=== PATIENT | male | born 1955 | race Asian ===

== ENCOUNTER → 2017-10-06 | Outpatient (CLI) | payer BC, OTHER ==
[~2017-10-06] MED LIST: ALLO100T PO; ATOR10TA69 PO; FENO45CA2 PO; GABA-531 PO; ISON300T4 PO; ISOS20TA9 PO; LABE200T PO; NIFE90TA45 PO; PYRI50TA15 PO
== END | disposition home or self-care (01) ==
LOC: OIH 16:29
PROVIDERS: ATTEND Internal Medicine
DX: R05 Cough (principal)
CPT/HCPCS: 71046

== ENCOUNTER → 2017-11-30 | Outpatient (CLI) | payer BC, OTHER ==
[~2017-11-30] MED LIST changes: -LABE200T PO; +LABE200T5 PO
== END | disposition home or self-care (01) ==
LOC: OIH 10:42
PROVIDERS: ATTEND Internal Medicine Nephrology
DX: Z01.818 Encounter for other preprocedural examination (principal); M47.895 Other spondylosis, thoracolumbar region
CPT/HCPCS: 71046

== ENCOUNTER → 2018-07-27 | Outpatient (CLI) | payer BC, OTHER | END | disposition home or self-care (01) | LOC: RAH 14:13 | PROVIDERS: ATTEND Orthopaedic Surgery | DX: S83.232A Complex tear of medial meniscus, current injury, left knee, initial encounter (principal); S83.272A Complex tear of lateral meniscus, current injury, left knee, initial encounter; M25.462 Effusion, left knee; X58.XXXA Exposure to other specified factors, initial encounter; Y93.89 Activity, other specified; Y92.89 Other specified places as the place of occurrence of the external cause; Y99.8 Other external cause status | CPT/HCPCS: 73721 ==

== ENCOUNTER 2018-09-17 13:19 | Emergency (ER) | payer BC, OTHER ==
[~2018-09-17 13:19] MED LIST changes: +ISON300T17 PO; -ISON300T4 PO
[2018-09-17] MEDS ORDERED: ACETAMINOPHEN-CODEINE 300/30MG TAB ONE (13:40)
== END 2018-09-17 14:38 | disposition home or self-care (01) ==
LOC: EDH 13:19
DX: S52.531A Colles' fracture of right radius, initial encounter for closed fracture (principal); N18.6 End stage renal disease; Z87.891 Personal history of nicotine dependence; Z98.890 Other specified postprocedural states; W01.0XXA Fall on same level from slipping, tripping and stumbling without subsequent striking against object, initial encounter; Y93.89 Activity, other specified; Y92.009 Unspecified place in unspecified non-institutional (private) residence as the place of occurrence of the external cause; Y99.8 Other external cause status
CPT/HCPCS: 29125; 73110

== ENCOUNTER → 2018-09-21 | Outpatient (CLI) | payer BC | END | disposition home or self-care (01) | LOC: RAH 16:53 | PROVIDERS: ATTEND Internal Medicine | DX: Z01.818 Encounter for other preprocedural examination (principal); I10 Essential (primary) hypertension | CPT/HCPCS: 71046 ==

== ENCOUNTER 2018-09-27 08:58 | Day surgery (SDC) | payer BC ==
[2018-09-26 16:19] LABS: EOSINOPHILS % (AUTO) 1.9 % (0.0-8.0); HEMATOCRIT 40.9 % (42-54); LYMPHOCYTES % (AUTO) 29.5 % (21.0-51.0); MEAN CORPUSCULAR HEMOGLOBIN 32.6 pg (27.0-33.0); MEAN CORPUSCULAR HGB CONC 33.3 g/dL (32.0-36.0); MEAN CORPUSCULAR VOLUME 97.7 fL (79-99); MONOCYTES % (AUTO) 10.3 % (3.0-13.0); NEUTROPHILS % (AUTO) 57.3 % (40.0-77.0); PLATELET COUNT (AUTO) 264 K/uL (130-400); RED BLOOD CELL COUNT(AUTO) 4.18 MIL/uL (4.50-6.20); RED CELL DISTRIBUTION WIDTH 15.4 % (11.0-15.5); WHITE BLOOD COUNT (AUTO) 7.3 K/uL (4.8-10.8)
[2018-09-26 16:21] LABS: APPEARANCE,URINE Clear (CLEAR); BILIRUBIN,URINE Negative (NEGATIVE); COLOR,URINE Yellow (YELLOW); GLUCOSE, URINE (UA) Negative (NEGATIVE); KETONES,URINE Negative (NEGATIVE); LEUKOCYTE ESTERASE ,URINE Negative (NEGATIVE); NITRATE,URINE Negative (NEGATIVE); OCCULT BLOOD,URINE Negative (NEGATIVE); PH,URINE 5.5 (5.0-8.0); PROTEIN,URINE POS 1+ (NEGATIVE); UROBILINOGEN,URINE 0.2 mg/dL (0.2-1.0)
[2018-09-26 16:22] VITALS: BP 151/72
[2018-09-26 16:32] LABS: CREATININE 2.2 mg/dL (0.5-1.5)
[2018-09-26 16:35] LABS: PARTIAL THROMBOPLASTIN TIME 28.5 SEC (26.3-35.5); PROTHROMBIN TIME 10.5 SEC (9.6-11.6)
[2018-09-26 16:40] LABS: BACTERIA,URINE None Seen /HPF (None Seen); RBC,URINE 0-1 /HPF (0-1); SQUAMOUS EPITHELIAL CELL,UR Rare /HPF (0-2); WBC,URINE 0-1 /HPF (0-1)
--- NOTE | 2018-09-26 17:13 | NUR ---
ABNORMAL LABS REPORTED ALL ABNORMAL LABS TO DR. WHATLEY. NO NEW ORDERS
[~2018-09-27] VITALS: Ht 170.2 cm; Wt 105.6 kg
[2018-09-27] VITALS (21 sets, daily range): BP systolic 118–157; BP diastolic 60–85
[~2018-09-27 08:58] MED LIST changes: +CEFAZOLIN 3GM /D5W 100ML 100 ML IV SCH; -FENO45CA2 PO; +HYDR-4060 PO; -ISON300T17 PO; -LABE200T5 PO; +LABE300T2 PO; +MYCO360T PO; +PNV1TABL71 PO; +PRED5TAB PO; -PYRI50TA15 PO
[2018-09-27] MEDS ORDERED: LIDOCAINE PF 2% 5ML ABBOJECT ONE (10:08)
[2018-09-27] MEDS ORDERED: PROPOFOL 10 MG/ML 20ML VIAL IV ONE (10:08)
[2018-09-27] MEDS ORDERED: FENTANYL CITRATE PF 50 MCG/1 ML 2ML VIAL ONE (10:09)
[2018-09-27] MEDS ORDERED: SODIUM CHLORIDE 0.9% 1000ML 1,000 ML IV ONE (10:09)
[2018-09-27] MEDS: CEFAZOLIN SODIUM 1 GM VIAL ONE ×2 (10:22→10:42)
[2018-09-27] MEDS ORDERED: GLYCOPYRROLATE 1 MG/5 ML SYRINGE ONE (11:00)
[2018-09-27] MEDS ORDERED: MEPERIDINE-PF 25 MG/ML SYG ONE ×2 (11:51→11:58)
[2018-09-27] MEDS ORDERED: HYDR-4457 PO (12:01)
[2018-09-27] MEDS ORDERED: CEPH500B PO (12:01)
== END 2018-09-27 13:50 | disposition home or self-care (01) ==
LOC: DAH 08:58 → UNDOADMIN 08:58 → DAHIP 08:58 → DAH 13:50 → UNDODISIN 13:50 → DAH 18:11
PROVIDERS: ATTEND Orthopaedic Surgery
DX: S52.591A Other fractures of lower end of right radius, initial encounter for closed fracture (principal); W19.XXXA Unspecified fall, initial encounter; Y93.89 Activity, other specified; Y92.89 Other specified places as the place of occurrence of the external cause; Y99.8 Other external cause status; J45.909 Unspecified asthma, uncomplicated; K21.9 Gastro-esophageal reflux disease without esophagitis; I25.10 Atherosclerotic heart disease of native coronary artery without angina pectoris; M19.90 Unspecified osteoarthritis, unspecified site; I12.9 Hypertensive chronic kidney disease with stage 1 through stage 4 chronic kidney disease, or unspecified chronic kidney disease; N18.9 Chronic kidney disease, unspecified; E78.5 Hyperlipidemia, unspecified; Z79.899 Other long term (current) drug therapy; Z88.8 Allergy status to other drugs, medicaments and biological substances; Z87.891 Personal history of nicotine dependence; Z79.1 Long term (current) use of non-steroidal anti-inflammatories (NSAID); Z83.3 Family history of diabetes mellitus; Z82.49 Family history of ischemic heart disease and other diseases of the circulatory system
CPT/HCPCS: 25606; 36415; 76000; 80048; 81001; 85025; 85610; 85730; A4218; A4930; A6223; C1713; J0690; J2001; J2175 ×2; J2704; J3010; J3490; J7030; Q4051

== ENCOUNTER 2019-04-13 06:55 | Day surgery (SDC) | payer BC ==
[2019-04-12 16:40] LABS: BASOPHILS % (AUTO) 0.7 % (0.0-5.0); EOSINOPHILS % (AUTO) 2.1 % (0.0-8.0); HEMATOCRIT 42.6 % (42-54); LYMPHOCYTES % (AUTO) 23.9 % (21.0-51.0); MEAN CORPUSCULAR HEMOGLOBIN 34.1 pg (27.0-33.0); MEAN CORPUSCULAR VOLUME 100.3 fL (79-99); MONOCYTES % (AUTO) 11.3 % (3.0-13.0); PLATELET COUNT (AUTO) 212 K/uL (130-400); RED BLOOD CELL COUNT(AUTO) 4.25 MIL/uL (4.50-6.20); RED CELL DISTRIBUTION WIDTH 14.6 % (11.0-15.5); WHITE BLOOD COUNT (AUTO) 8.6 K/uL (4.8-10.8)
[2019-04-12 16:49] LABS: CREATININE 2.1 mg/dL (0.5-1.5); POTASSIUM 4.4 mmol/L (3.5-5.1)
[2019-04-12 17:52] VITALS: BP 162/80
[2019-04-13] VITALS (13 sets, daily range): BP systolic 112–150; BP diastolic 61–84
[~2019-04-13] VITALS: Ht 170.2 cm; Wt 104.8 kg
[~2019-04-13 06:55] MED LIST changes: +BELA250V IV; -CEFAZOLIN 3GM /D5W 100ML 100 ML IV SCH; -HYDR-4060 PO; +HYDR-4457 PO; +LEFL20TA18 PO; -MYCO360T PO; -PNV1TABL71 PO
[2019-04-13] MEDS ORDERED: LIDOCAINE PF 2% 5ML ABBOJECT ONE (07:48)
[2019-04-13] MEDS ORDERED: SUCCINYLCHOLINE 200MG/10ML SYR ONE (07:48)
[2019-04-13] MEDS ORDERED: FENTANYL CITRATE PF 50 MCG/1 ML 2ML VIAL ONE (07:49)
[2019-04-13] MEDS ORDERED: PROPOFOL 10 MG/ML 20ML VIAL IV ONE (07:49)
[2019-04-13] MEDS ORDERED: NEOSTIGMINE 5MG/5ML SYR IV ONE (07:49)
[2019-04-13] MEDS ORDERED: ROCURONIUM 10MG/1ML SYR 10 MG/ML ML ONE (07:49)
[2019-04-13] MEDS ORDERED: GLYCOPYRROLATE 1 MG/5 ML SYRINGE ONE (07:49)
[2019-04-13] MEDS ORDERED: LACTATED RINGERS 1000ML 1,000 ML IV ONE (08:07)
[2019-04-13] MEDS: CEFAZOLIN SODIUM 1 GM VIAL IVP ONE ×2 (08:37→09:14)
--- NOTE | 2019-04-13 08:37 | NUR ---
ANTIBIOTIC NOT GIVEN , TAKEN WITH PATIENT TO OR
[2019-04-13] MEDS ORDERED: METHYLPREDNISOLONE SOD SUCC 125MG/2ML VIAL ONE ×2 (08:47→08:48)
[2019-04-13] MEDS ORDERED: HYDROCORTISONE SOD SUCCINATE 100 MG/2 ML VIAL ONE (08:49)
[2019-04-13] MEDS ORDERED: KETOROLAC TROMETHAMINE 30MG/ML ONE (09:39)
[2019-04-13] MEDS ORDERED: ONDANSETRON HCL 4 MG/2 ML VIAL ONE (09:39)
[2019-04-13] MEDS ORDERED: CEPH500B PO (09:52)
[2019-04-13] MEDS ORDERED: MEPERIDINE-PF 25 MG/ML SYG ONE (10:05)
== END 2019-04-13 11:45 | disposition home or self-care (01) ==
LOC: DAH 06:55
PROVIDERS: ATTEND Orthopaedic Surgery
DX: M23.204 Derangement of unspecified medial meniscus due to old tear or injury, left knee (principal); M94.262 Chondromalacia, left knee; M17.12 Unilateral primary osteoarthritis, left knee; I12.9 Hypertensive chronic kidney disease with stage 1 through stage 4 chronic kidney disease, or unspecified chronic kidney disease; N18.9 Chronic kidney disease, unspecified; E78.5 Hyperlipidemia, unspecified; I25.10 Atherosclerotic heart disease of native coronary artery without angina pectoris; M19.90 Unspecified osteoarthritis, unspecified site; F17.200 Nicotine dependence, unspecified, uncomplicated; J45.909 Unspecified asthma, uncomplicated; Z86.010 Personal history of colon polyps; Z98.1 Arthrodesis status; Z96.651 Presence of right artificial knee joint; Z94.0 Kidney transplant status; G89.29 Other chronic pain; Z98.890 Other specified postprocedural states
CPT/HCPCS: 29881; 36415; 80048; 85025; A4606 ×2; A4649 ×2; A4930; A6223; J0330; J0690; J1720; J1885; J2001; J2175; J2405; J2704; J2710; J2930; J3010; J3490; J7120

== ENCOUNTER 2019-08-05 13:38 | Emergency (ER) | payer BC ==
[~2019-08-05 13:38] MED LIST changes: +CEPH500B PO
[2019-08-05 14:19] LABS: BASOPHILS % (AUTO) 0.2 % (0.0-5.0); HEMATOCRIT 39.7 % (42-54); LYMPHOCYTES % (AUTO) 8.8 % (21.0-51.0); MEAN CORPUSCULAR HEMOGLOBIN 33.6 pg (27.0-33.0); MEAN CORPUSCULAR HGB CONC 33.7 g/dL (32.0-36.0); MEAN CORPUSCULAR VOLUME 99.9 fL (79-99); PLATELET COUNT (AUTO) 235 K/uL (130-400); RED BLOOD CELL COUNT(AUTO) 3.97 MIL/uL (4.50-6.20); RED CELL DISTRIBUTION WIDTH 14.8 % (11.0-15.5); WHITE BLOOD COUNT (AUTO) 10.8 K/uL (4.8-10.8)
[2019-08-05 14:35] LABS: CREATININE 2.1 mg/dL (0.5-1.5); INR 1.01 (0.85-1.15); PARTIAL THROMBOPLASTIN TIME 23.8 SEC (26.3-35.5); PROTHROMBIN TIME 10.6 SEC (9.6-11.6)
[2019-08-05 14:44] LABS: ALBUMIN 3.6 g/dL (3.5-5.0); BILIRUBIN,TOTAL 0.4 mg/dL (0.2-1.0); TOTAL PROTEIN, SERUM 6.5 g/dL (6.0-8.3)
[2019-08-05] MEDS ORDERED: HYDRALAZINE HCL 20 MG/ML VIAL ONE (15:12)
== END 2019-08-05 17:06 | disposition home or self-care (01) ==
LOC: EDH 13:38
DX: I12.9 Hypertensive chronic kidney disease with stage 1 through stage 4 chronic kidney disease, or unspecified chronic kidney disease (principal); N18.6 End stage renal disease; Z90.49 Acquired absence of other specified parts of digestive tract; Z94.0 Kidney transplant status; Z72.0 Tobacco use
CPT/HCPCS: 36415; 71045; 80053; 82550; 84484; 85025; 85610; 85730; 93005; 96374; 99285; J0360

== ENCOUNTER → 2019-12-17 | Outpatient (CLI) | payer BC | END | disposition home or self-care (01) | LOC: OIH 15:39 | PROVIDERS: ATTEND Internal Medicine | DX: I10 Essential (primary) hypertension (principal) | CPT/HCPCS: 71046 ==

== ENCOUNTER → 2020-01-08 | Outpatient (CLI) | payer BC | END | disposition home or self-care (01) | LOC: RAH 08:15 | PROVIDERS: ATTEND Internal Medicine Nephrology | DX: Z94.0 Kidney transplant status (principal); T86.10 Unspecified complication of kidney transplant | CPT/HCPCS: 76770 ==

== ENCOUNTER 2020-01-14 10:00 | Inpatient (IN) | payer BC, MEDICARE ==
[~2020-01-14] VITALS: Ht 170.2 cm; Wt 103.9 kg
[~2020-01-14 10:00] MED LIST changes: -CEPH500B PO; -ISOS20TA9 PO; -NIFE90TA45 PO; -PRED5TAB PO
[2020-02-01 12:59] LABS: BASOPHILS % (AUTO) 0.6 % (0.0-5.0); EOSINOPHILS % (AUTO) 2.7 % (0.0-8.0); HEMATOCRIT 34.8 % (42-54); LYMPHOCYTES % (AUTO) 22.9 % (21.0-51.0); MEAN CORPUSCULAR HEMOGLOBIN 31.6 pg (27.0-33.0); MEAN CORPUSCULAR VOLUME 95.6 fL (79-99); NEUTROPHILS % (AUTO) 65.4 % (40.0-77.0); PLATELET COUNT (AUTO) 218 K/uL (130-400); RED BLOOD CELL COUNT(AUTO) 3.64 MIL/uL (4.50-6.20); RED CELL DISTRIBUTION WIDTH 14.8 % (11.0-15.5); WHITE BLOOD COUNT (AUTO) 9.8 K/uL (4.8-10.8)
[2020-02-01 13:10] LABS: CREATININE 2.4 mg/dL (0.5-1.5); POTASSIUM 4.4 mmol/L (3.5-5.1)
[2020-02-01 13:13] LABS: APPEARANCE,URINE Clear (CLEAR); BILIRUBIN,URINE Negative (NEGATIVE); COLOR,URINE Yellow (YELLOW); GLUCOSE, URINE (UA) Negative (NEGATIVE); INR 0.94 (0.85-1.15); KETONES,URINE Negative (NEGATIVE); LEUKOCYTE ESTERASE ,URINE Negative (NEGATIVE); NITRATE,URINE Negative (NEGATIVE); OCCULT BLOOD,URINE Negative (NEGATIVE); PARTIAL THROMBOPLASTIN TIME 26.6 SEC (26.3-35.5); PH,URINE 5.5 (5.0-8.0); PROTEIN,URINE POS 2+ mg/dL (NEGATIVE); PROTHROMBIN TIME 10.2 SEC (9.6-11.6); UROBILINOGEN,URINE 0.2 mg/dL (0.2-1.0)
[2020-02-01 13:36] LABS: BACTERIA,URINE Rare /HPF (None Seen); RBC,URINE None Seen /HPF (0-1)
[2020-02-01 13:38] LABS: SQUAMOUS EPITHELIAL CELL,UR None Seen /HPF (0-2); WBC,URINE 0-1 /HPF (0-1)
[2020-02-05 10:48] VITALS: BP 193/94
[2020-02-05] MEDS ORDERED: VANCOMYCIN 1GM+NS 250ML 250 ML IV SCH (11:30)
[2020-02-05] MEDS ORDERED: DOXA4TAB3 PO (15:40)
[2020-02-05] MEDS ORDERED: FAMO20TA8 PO (15:41)
[2020-02-05] MEDS ORDERED: HYDR-4154 PO (15:43)
[2020-02-05] MEDS ORDERED: ISOS60TA4 PO (15:44)
[2020-02-05] MEDS ORDERED: [UNRECOGNIZED DRUG - OTHER] PO (15:45)
[2020-02-06] VITALS (22 sets, daily range): BP systolic 115–158; BP diastolic 64–105
[2020-02-06] MEDS ORDERED: CEFAZOLIN SODIUM 1 GM VIAL IVP SCH (06:00)
[2020-02-06] MEDS ORDERED: SODIUM CHLORIDE 0.9% 1000ML 1,000 ML IV ONE (06:30)
[2020-02-06] MEDS ORDERED: VANCOMYCIN 2 GM in SODIUM CHLORIDE 0.9% 500ML 500 ML IV SCH (06:45)
--- NOTE | 2020-02-06 06:50 | NUR ---
POTENTIAL FOR INFECTION: CLIPPED LEFT KNEE / LEFT LEG PER GRETA DOMINGO, FOLLOWED BY WIPING WITH JESSICA: 2% CHLORHEXIDINE GLUCONATE CLOTH PATIENTS PRE-OP SKIN PREP.
[2020-02-06] MEDS ORDERED: LIDOCAINE PF 2% 5ML ABBOJECT ONE (07:45)
[2020-02-06] MEDS ORDERED: KETAMINE 50MG/ML SYRINGE 50 MG/ML DISP.SYRIN IV ONE (07:45)
[2020-02-06] MEDS ORDERED: PROPOFOL 10 MG/ML 20ML VIAL IV ONE (07:45)
[2020-02-06] MEDS ORDERED: ROCURONIUM 10MG/1ML SYR 10 MG/ML ML ONE ×2 (07:45→08:49)
[2020-02-06] MEDS ORDERED: SUCCINYLCHOLINE CHLORIDE 20 MG/ML 10 ML VIAL ONE (07:45)
[2020-02-06] MEDS ORDERED: CEFAZOLIN SODIUM 1 GM VIAL ONE ×2 (07:46→07:49)
[2020-02-06] MEDS ORDERED: VANCOMYCIN HCL 1 GM VIAL ONE (07:47)
[2020-02-06] MEDS ORDERED: TRANEXAMIC ACID 1000MG/10ML ONE ×2 (07:59→11:10)
[2020-02-06] MEDS ORDERED: VANCOMYCIN HCL 1 GM VIAL IRRIG ONE (09:08)
[2020-02-06] MEDS ORDERED: NEOSTIGMINE 5MG/5ML SYR IV ONE (09:53)
[2020-02-06] MEDS ORDERED: GLYCOPYRROLATE 1 MG/5 ML SYRINGE ONE (09:53)
[2020-02-06] MEDS ORDERED: ONDANSETRON HCL 4 MG/2 ML VIAL ONE (10:24)
[2020-02-06] MEDS: SODIUM CHLORIDE 0.9% 1000ML 1,000 ML IV SCH ×2 (10:24→23:24)
[2020-02-06] MEDS ORDERED: ONDANSETRON HCL 4 MG/2 ML VIAL IVP PRN (10:30)
[2020-02-06] MEDS ORDERED: FERROUS FUMARATE 324 MG TABLET PO PRN (10:30)
[2020-02-06] MEDS ORDERED: DiphenhydrAMINE HCL 50 MG/ML VIAL IVP PRN (10:30)
[2020-02-06] MEDS ORDERED: POTASSIUM CHLORIDE 20MEQ/100ML 100 ML IV PRN (10:30)
[2020-02-06] MEDS ORDERED: POTASSIUM CHLORIDE 20 MEQ ERTAB PO PRN (10:30)
[2020-02-06] MEDS ORDERED: ACETAMINOPHEN EXTRA STRENGTH 500 MG TABLET PO SCH (10:30)
[2020-02-06] MEDS ORDERED: TRAMADOL HCL 50 MG TABLET PO PRN (10:30)
[2020-02-06] MEDS ORDERED: POTASSIUM CHLORIDE 10% ELIXIR 20 MEQ/15 ML UDCUP PO PRN (10:30)
[2020-02-06] MEDS ORDERED: KETOROLAC TROMETHAMINE 15MG/ML IV PRN (10:30)
[2020-02-06] MEDS ORDERED: OXYCODONE HCL 5 MG TAB PO PRN (10:30)
[2020-02-06] MEDS ORDERED: LIDOCAINE HCL-MPF 1% 2ML VIAL IV PRN (10:30)
[2020-02-06] MEDS: OXYCODONE HCL 5 MG TAB PO PRN ×3 (12:51→23:24)
--- NOTE | 2020-02-06 14:44 | NUR ---
DC PLAN VISITED WITH PATIENT. PATIENT LIVES WITH SPOUSE. INDEPENDENT ABLE TO PERFORM ADL'S. PATIENT HAS NO SERVICES. FEELS SAFE TO RETURN HOME.. DME: SAYS HE HAS FROM LAST ADMISSION WALKER STANDARD NO WHEELS AND 3 IN 1. HOME HEALTH: DR. WHATLEY RECOMMENDS [facility] PER PATIENT GAVE VERBAL CONSENT. PATIENT ON ISOLATION FOR NARES MRSA. INFO SENT TO [facility]. PATIENT ACCEPTED. Addendum: 02/06/20 at 1513 by SRAVANTHI ELDER RN CM Amended: Links added.
[2020-02-06] MEDS ORDERED: SODIUM CHLORIDE 0.9% 100 ML IV ONE (15:51)
[2020-02-06] MEDS: VANCOMYCIN 1GM+NS 250ML 250 ML IV SCH (16:01)
[2020-02-06] MEDS: CEFAZOLIN SODIUM 1 GM VIAL IVP SCH ×2 (16:01→23:23)
[2020-02-06] MEDS: LABETALOL HCL 200 MG TABLET PO SCH (20:04)
[2020-02-06] MEDS: CELECOXIB 200 MG CAP PO SCH (20:04)
[2020-02-06] MEDS: HYDRALAZINE HCL 25 MG TABLET PO SCH (20:04)
[2020-02-06] MEDS: ASPIRIN 81MG TAB.CHEW PO SCH (20:05)
[2020-02-06] MEDS: ISOSORBIDE MONO 60 MG TAB.SR PO SCH (20:05)
[2020-02-06] MEDS: ATORVASTATIN CALCIUM 10 MG TABLET PO SCH (20:05)
[2020-02-06] MEDS: DOXAZOSIN MESYLATE 2 MG TABLET PO SCH (20:05)
[2020-02-06] MEDS: GABAPENTIN 300 MG CAPSULE PO SCH (20:05)
[2020-02-06] MEDS: ACETAMINOPHEN EXTRA STRENGTH 500 MG TABLET PO SCH (20:06)
[2020-02-06] MEDS ORDERED: FAMOTIDINE 20MG TAB 20 MG TAB PO SCH (21:00)
[2020-02-06] MEDS ORDERED: HYDROMORPHONE 1 MG/1 ML AMP ONE (21:52)
[2020-02-07] MEDS: HYDROMORPHONE 1 MG/1 ML AMP IVP PRN ×8 (00:07→21:49)
[2020-02-07 00:12] VITALS: BP 183/78
[2020-02-07] MEDS: VANCOMYCIN 1GM+NS 250ML 250 ML IV SCH (03:51)
[2020-02-07 04:20] VITALS: BP 150/77
[2020-02-07 04:59] LABS: HEMATOCRIT 29.1 % (42-54); MEAN CORPUSCULAR HEMOGLOBIN 31.7 pg (27.0-33.0); MEAN CORPUSCULAR HGB CONC 32.6 g/dL (32.0-36.0); RED CELL DISTRIBUTION WIDTH 15.1 % (11.0-15.5); WHITE BLOOD COUNT (AUTO) 10.8 K/uL (4.8-10.8)
[2020-02-07] MEDS: ACETAMINOPHEN EXTRA STRENGTH 500 MG TABLET PO SCH ×3 (05:09→21:00)
[2020-02-07 05:19] LABS: CREATININE 2.7 mg/dL (0.5-1.5)
[2020-02-07] MEDS: SODIUM CHLORIDE 0.9% 1000ML 1,000 ML IV SCH (06:46)
[2020-02-07 08:00] VITALS: BP 164/82
[2020-02-07] MEDS: FAMOTIDINE 20MG TAB 20 MG TAB PO SCH (08:21)
[2020-02-07] MEDS: CALCIUM CARBONATE 500 MG TABLET PO PRN ×2 (08:21→19:42)
[2020-02-07] MEDS: CELECOXIB 200 MG CAP PO SCH ×2 (08:21→19:41)
[2020-02-07] MEDS: ASPIRIN 81MG TAB.CHEW PO SCH ×2 (08:22→19:41)
[2020-02-07] MEDS: ALLOPURINOL 100 MG TABLET PO SCH (08:22)
[2020-02-07] MEDS: HYDRALAZINE HCL 25 MG TABLET PO SCH ×2 (08:22→19:42)
[2020-02-07] MEDS: TAMSULOSIN HCL 0.4 MG CAP.ER.24H PO SCH (08:23)
[2020-02-07] MEDS: POLYETHYLENE GLYCOL 3350 17 GM POWD.PACK PO SCH (08:23)
[2020-02-07] MEDS: LABETALOL HCL 200 MG TABLET PO SCH ×2 (08:23→19:42)
[2020-02-07] MEDS: [UNRECOGNIZED DRUG - OTHER] PO SCH (08:30)
[2020-02-07] MEDS: **HM** LEFLUNOMIDE 20MG PO SCH (08:30)
[2020-02-07] MEDS ORDERED: HYDROMORPHONE PCA 10 MG/50 ML 50 ML IV PRN (08:45)
[2020-02-07 11:39] VITALS: BP 127/70
[2020-02-07 16:00] VITALS: BP 148/86
[2020-02-07] MEDS: ISOSORBIDE MONO 60 MG TAB.SR PO SCH (19:41)
[2020-02-07] MEDS: DOXAZOSIN MESYLATE 2 MG TABLET PO SCH (19:41)
[2020-02-07] MEDS: ATORVASTATIN CALCIUM 10 MG TABLET PO SCH (19:42)
[2020-02-07] MEDS: GABAPENTIN 300 MG CAPSULE PO SCH (19:42)
[2020-02-07 20:20] VITALS: BP 156/69
[2020-02-07] MEDS: OXYCODONE HCL 5 MG TAB PO PRN (22:27)
[2020-02-08 00:24] VITALS: BP 159/73
[2020-02-08] MEDS: ACETAMINOPHEN EXTRA STRENGTH 500 MG TABLET PO SCH (04:13)
[2020-02-08 04:24] VITALS: BP 135/72
[2020-02-08 08:00] VITALS: BP 131/70
[2020-02-08] MEDS ORDERED: MAGNESIUM CITRATE 296 ML SOLUTION PO SCH (08:30)
[2020-02-08] MEDS: **HM** LEFLUNOMIDE 20MG PO SCH (09:00)
[2020-02-08] MEDS: [UNRECOGNIZED DRUG - OTHER] PO SCH (09:00)
[2020-02-08] MEDS: TAMSULOSIN HCL 0.4 MG CAP.ER.24H PO SCH (09:00)
[2020-02-08] MEDS ORDERED: BISACODYL 5 MG TABLET.DR PO SCH (09:00)
[2020-02-08] MEDS: LABETALOL HCL 200 MG TABLET PO SCH (09:11)
[2020-02-08] MEDS: HYDRALAZINE HCL 25 MG TABLET PO SCH (09:11)
[2020-02-08] MEDS: ASPIRIN 81MG TAB.CHEW PO SCH (09:11)
[2020-02-08] MEDS: ALLOPURINOL 100 MG TABLET PO SCH (09:11)
[2020-02-08] MEDS: POLYETHYLENE GLYCOL 3350 17 GM POWD.PACK PO SCH (09:12)
[2020-02-08] MEDS: CELECOXIB 200 MG CAP PO SCH (09:12)
[2020-02-08] MEDS: FAMOTIDINE 20MG TAB 20 MG TAB PO SCH (09:12)
[2020-02-08 11:13] VITALS: BP 150/90
[2020-02-08] MEDS ORDERED: HYDR-4457 PO (11:33)
[2020-02-08] MEDS ORDERED: ASPI-1005 PO (11:33)
--- NOTE | 2020-02-08 12:00 | NUR ---
REPORT CALLED [facility]. REPORT GIVEN TO GIANNA FERNANDES LVN REGARDING F/U APPOINTMENTS, WBAT, NEW RX (ASA, NORCO), [facility] AND D/C , S/S TO REPORT. NO CONCERNS VOICED.
--- NOTE | 2020-02-08 12:00 | NUR ---
DISCHARGE PATIENT GIVEN DISCHARGE INSTRUCTIONS AND EDUCATION ON FOLLOW UP APPOINTMENTS, NEW RX (ASA, NORCO), S/S TO REPORT, [facility] AND D/C ON 02/13/20, WBAT. PATIENT VERBALIZED UNDERSTANDING OF ALL EDUCATION GIVEN VIA TEACH BACK, REFERENCE MATERIAL PROVIDED., IV DISCONTINUED, CATHETER INTACT. NO DISTRESS NOTED UPON DISCHARGE. [facility] CH[facility]. CLEANED SITE WITH IODINE, SEAL INTACT, NEGATIVE PRESSURE ACTIVE. PATIENT WAITING ON SECOND THERAPY SESSION THIS AFTERNOON TO GO HOME.
[2020-02-09] MEDS ORDERED: BISACODYL 10 MG SUPP.RECT RC PRN (10:30)
== END 2020-02-08 14:25 | disposition home health service (06) | DRG 470 ==
LOC: EDSTATUS 10:00 → DAHIP 02-06 05:06 → 3DH 02-06 12:08
PROVIDERS: ADMIT Orthopaedic Surgery; ATTEND Orthopaedic Surgery
PROC: 0SRD0J9 Replacement of Left Knee Joint with Synthetic Substitute, Cemented, Open Approach (ICD-10-PCS; principal; 2020-02-06 08:04)
PROC: 3E0T3BZ Introduction of Anesthetic Agent into Peripheral Nerves and Plexi, Percutaneous Approach (ICD-10-PCS; 2020-02-06 08:04)
DX: M17.12 Unilateral primary osteoarthritis, left knee (principal); Z94.0 Kidney transplant status; E78.5 Hyperlipidemia, unspecified; I25.10 Atherosclerotic heart disease of native coronary artery without angina pectoris; I34.0 Nonrheumatic mitral (valve) insufficiency; J45.909 Unspecified asthma, uncomplicated; K59.00 Constipation, unspecified; Z96.651 Presence of right artificial knee joint; K21.9 Gastro-esophageal reflux disease without esophagitis; N18.9 Chronic kidney disease, unspecified; I12.9 Hypertensive chronic kidney disease with stage 1 through stage 4 chronic kidney disease, or unspecified chronic kidney disease; G89.29 Other chronic pain; Z87.891 Personal history of nicotine dependence; Z86.010 Personal history of colon polyps; Z88.7 Allergy status to serum and vaccine; Z83.3 Family history of diabetes mellitus; Z82.49 Family history of ischemic heart disease and other diseases of the circulatory system
CPT/HCPCS: 36415; 80048; 81001; 85025; 85027; 85610; 85730; 87641; 96365; 97039; G0378; J0330; J0690; J1170; J1885; J2001; J2405; J2704; J2710; J3370; J3490; J7030; J7040; J7120; U0003

== ENCOUNTER → 2020-05-15 | Outpatient (CLI) | payer BC, MEDICARE ==
[~2020-05-15] MED LIST changes: +ASPI-1005 PO; +DOXA4TAB3 PO; +FAMO20TA8 PO; +HYDR-4154 PO; +ISOS60TA4 PO; +[UNRECOGNIZED DRUG - OTHER] PO
== END | disposition home or self-care (01) ==
LOC: RAH 12:32
PROVIDERS: ATTEND Anesthesiology Pain Medicine
DX: M51.17 Intervertebral disc disorders with radiculopathy, lumbosacral region (principal); M48.07 Spinal stenosis, lumbosacral region; M47.27 Other spondylosis with radiculopathy, lumbosacral region; M96.1 Postlaminectomy syndrome, not elsewhere classified
CPT/HCPCS: 72148

== ENCOUNTER 2021-02-13 09:53 | Day surgery (SDC) | payer BC, MEDICARE ==
[2021-02-10 14:10] LABS: BASOPHILS % (AUTO) 0.7 % (0.0-5.0); EOSINOPHILS % (AUTO) 3.2 % (0.0-8.0); HEMATOCRIT 37.1 % (42-54); MEAN CORPUSCULAR HEMOGLOBIN 31.4 pg (27.0-33.0); MEAN CORPUSCULAR HGB CONC 32.1 g/dL (32.0-36.0); MEAN CORPUSCULAR VOLUME 97.9 fL (79-99); MONOCYTES % (AUTO) 9.2 % (3.0-13.0); NEUTROPHILS % (AUTO) 56.5 % (40.0-77.0); PLATELET COUNT (AUTO) 169 K/uL (130-400); RED BLOOD CELL COUNT(AUTO) 3.79 MIL/uL (4.50-6.20); RED CELL DISTRIBUTION WIDTH 15.8 % (11.0-15.5); WHITE BLOOD COUNT (AUTO) 7.5 K/uL (4.8-10.8)
[2021-02-10 14:29] LABS: INR 1.01 (0.85-1.15)
[2021-02-10 14:31] LABS: PARTIAL THROMBOPLASTIN TIME 26.9 SEC (26.3-35.5)
[2021-02-10 14:32] LABS: ALBUMIN 3.8 g/dL (3.5-5.0); BILIRUBIN,TOTAL 0.4 mg/dL (0.2-1.0); CREATININE 2.9 mg/dL (0.5-1.5); POTASSIUM 4.4 mmol/L (3.5-5.1); TOTAL PROTEIN, SERUM 7.2 g/dL (6.0-8.3)
[2021-02-12 10:46] VITALS: BP 176/81
[2021-02-13] VITALS (17 sets, daily range): BP systolic 109–131; BP diastolic 56–82
[~2021-02-13] VITALS: Ht 172.7 cm; Wt 110.7 kg
[~2021-02-13 09:53] MED LIST changes: -ASPI-1005 PO; -DOXA4TAB3 PO; -FAMO20TA8 PO; -GABA-531 PO; -HYDR-4457 PO; -ISOS60TA4 PO; +ISOS60TA77 PO; -LEFL20TA18 PO; +MYCO360T PO; +OXYC10TA48 PO; -[UNRECOGNIZED DRUG - OTHER] PO
[2021-02-13] MEDS ORDERED: LACTATED RINGERS 1000ML 1,000 ML IV ONE (10:21)
[2021-02-13] MEDS ORDERED: ONDANSETRON 4MG INJ ONE (11:08)
[2021-02-13] MEDS ORDERED: LIDOCAINE PF 100MG/5ML (2%) SYRINGE 5ML ONE (11:08)
[2021-02-13] MEDS ORDERED: SUCCINYLCHOLINE CHLORIDE 20 MG/ML 10 ML VIAL ONE (11:08)
[2021-02-13] MEDS ORDERED: NEOSTIGMINE 5MG/5ML SYR IV ONE (11:09)
[2021-02-13] MEDS ORDERED: GLYCOPYRROLATE 1 MG/5 ML SYRINGE ONE ×2 (11:09→12:40)
[2021-02-13] MEDS ORDERED: ROCURONIUM 10MG/1ML SYR 10 MG/ML ML ONE (11:09)
[2021-02-13] MEDS ORDERED: MIDAZOLAM HCL 1 MG/ML 2ML VIAL ONE (11:09)
[2021-02-13] MEDS ORDERED: DEXAMETHASONE SOD PHOSPHATE 10MG/ML 1ML VIAL ONE (11:09)
[2021-02-13] MEDS ORDERED: FENTANYL CITRATE PF 50 MCG/1 ML 2ML VIAL ONE (11:09)
[2021-02-13] MEDS ORDERED: PROPOFOL 10 MG/ML 20ML VIAL IV ONE (11:09)
[2021-02-13] MEDS ORDERED: KETAMINE 50MG/ML SYRINGE 50 MG/ML DISP.SYRIN IV ONE (11:24)
[2021-02-13] MEDS ORDERED: BUPIVACAINE/PF 0.25% 30ML VIAL IJ ONE (11:46)
[2021-02-13] MEDS ORDERED: EPHEDRINE SULFATE 50 MG/ML AMPULE ONE (11:49)
[2021-02-13] MEDS ORDERED: 0.9%NACL 10ML VIAL ONE (11:51)
[2021-02-13] MEDS ORDERED: CEFAZOLIN SODIUM 1 GM VIAL ONE (11:59)
[2021-02-13] MEDS ORDERED: GENTAMICIN SULFATE 80 MG/2 ML VIAL ONE (11:59)
[2021-02-13] MEDS ORDERED: LIDOCAINE 1%-EPI 1:100,000 20 ML VIAL IJ ONE (12:02)
[2021-02-13] MEDS ORDERED: GENTAMICIN 80 MG/NS 100 ML PB 100 ML IV ONE (12:02)
[2021-02-13] MEDS ORDERED: VANCOMYCIN 1G VIAL ONE (12:23)
[2021-02-13] MEDS ORDERED: SUGAMMADEX SODIUM 200 MG/2 ML VIAL IV ONE (12:31)
== END 2021-02-13 14:50 | disposition home or self-care (01) ==
LOC: DAHIP 09:53 → DAH 09:53 → DAHIP 09:53 → UNDOADMOB 09:53 → EDSTATUS 13:00 → DAH 14:50
PROVIDERS: ATTEND Neurological Surgery
DX: M96.1 Postlaminectomy syndrome, not elsewhere classified (principal); G89.4 Chronic pain syndrome; Z20.822 Contact with and (suspected) exposure to COVID-19; M51.16 Intervertebral disc disorders with radiculopathy, lumbar region; M48.07 Spinal stenosis, lumbosacral region; G47.33 Obstructive sleep apnea (adult) (pediatric); K21.9 Gastro-esophageal reflux disease without esophagitis; M19.90 Unspecified osteoarthritis, unspecified site; I25.10 Atherosclerotic heart disease of native coronary artery without angina pectoris; F17.210 Nicotine dependence, cigarettes, uncomplicated; Z98.890 Other specified postprocedural states; Z90.49 Acquired absence of other specified parts of digestive tract; Z82.49 Family history of ischemic heart disease and other diseases of the circulatory system; Z79.01 Long term (current) use of anticoagulants; Z79.899 Other long term (current) drug therapy; Y83.8 Other surgical procedures as the cause of abnormal reaction of the patient, or of later complication, without mention of misadventure at the time of the procedure
CPT/HCPCS: 36415; 63650 ×2; 63685; 71046; 72070; 80053; 85025; 85610; 85730; 87635; 93005; A4215; A4221; A4222; A4223; A4649 ×2; A4663; A6219; A6260; C1778; C1787; C1820; C9803; G0168; J0330; J0690; J1100; J1580; J2001; J2250; J2405; J2704; J2710; J3010; J3370; J3490 ×6; J7120; G0378

== ENCOUNTER → 2021-08-10 | Outpatient (CLI) | payer OTHER, MEDICARE | END | disposition home or self-care (01) | LOC: RAH 09:14 | PROVIDERS: ATTEND Internal Medicine | DX: N28.1 Cyst of kidney, acquired (principal); N26.1 Atrophy of kidney (terminal); Z94.0 Kidney transplant status; Z90.49 Acquired absence of other specified parts of digestive tract | CPT/HCPCS: 76700 ==

== ENCOUNTER → 2022-04-05 | Outpatient (CLI) | payer OTHER, MEDICARE ==
[~2022-04-05] MED LIST changes: -LABE300T2 PO; +LABE300T4 PO
== END | disposition home or self-care (01) ==
LOC: RAH 10:45
PROVIDERS: ATTEND Internal Medicine
DX: S30.1XXA Contusion of abdominal wall, initial encounter (principal); R10.11 Right upper quadrant pain; Z94.0 Kidney transplant status; X58.XXXA Exposure to other specified factors, initial encounter; Y93.89 Activity, other specified; Y92.89 Other specified places as the place of occurrence of the external cause; Y99.8 Other external cause status
CPT/HCPCS: 74150

== ENCOUNTER 2024-09-01 23:22 | Emergency (ER) | payer MEDICARE ==
[~2024-09-01] VITALS: Ht 170.2 cm; Wt 103.9 kg
[~2024-09-01 23:22] MED LIST changes: -ALLO100T PO; +ASPI-1005 PO; +ATOR10 PO; -ATOR10TA69 PO; -BELA250V IV; +DOXA8TAB81 PO; +FAMO20TA8 PO; +FURO40TA5 PO; +GABA300C PO; -HYDR-4154 PO; +ISOS-58 PO; -ISOS60TA77 PO; +MELA1TAB28 PO; -MYCO360T PO; +NIFE-79 PO; -OXYC10TA48 PO; +PRED10TA3 PO; +SODI650T PO; +TAMS-1 PO; +[UNRECOGNIZED DRUG - CODE] PO
[2024-09-01] MEDS: PANTOPrazole 40 MG/VIAL IVP ONE (23:49)
[2024-09-01] MEDS: ondanSETRON 4MG INJ IVP ONE (23:49)
--- NOTE | 2024-09-01 23:54 | ERN ---
General Chief Complaint: Nausea,Vomiting,Diarrhea Stated Complaint: VOMITING Time Seen by MD: 23:25 Source: patient, family History of Present Illness Initial Comments PATIENT IS A 69-YEAR-OLD MALE COMING IN TO BE EVALUATED FOR NAUSEA AND VOMITING. PER AND PATIENT THESE SYMPTOMS BEGAN EARLIER TODAY. PATIENT HAS RECENTLY STARTED TAKING BACLOFEN AND PREDNISONE FOR A TORTICOLLIS. HE STATES THAT SHORTLY AFTER TAKING THAT MEDICATION HE STARTED PRESENTING WITH NAUSEOUSNESS AND VOMITING. HE DOES HAVE A HISTORY OF END-STAGE RENAL DISEASE REQUIRING DIALYSIS. HE HAS A KIDNEY TRANSPLANT ABOUT EIGHT YEARS AGO WHICH WAS REJECTED. HISTORY OF HYPERTENSION NO DIABETES THE CHOLESTEROL. Allergies: Coded Allergies: Tetanus Vaccines & Toxoid (Unverified Allergy, Unknown, 01/11/16) Home Meds Reported Medications Prednisone (Prednisone) 10 Mg Tablet, 10 MG PO DAILY, TAB 05/11/24 Tamsulosin HCl (Flomax) 0.4 Mg Cap.er.24h, 0.4 MG PO DAILY, CAPSULE.DR 05/08/24 Aspirin (ASPIRIN 81MG CHEW TAB) 81 Mg Tab.chew, 81 MG PO DAILY, TAB.CHEW 05/08/24 Sodium Bicarbonate (Sodium Bicarbonate) 650 Mg Tablet, 650 MG PO TID, TAB 05/08/24 Nifedipine (Nifedipine ER) 60 Mg Tablet.er, 60 MG PO BID, TAB 05/08/24 Mycophenolate Sodium (Mycophenolic Acid) 180 Mg Tablet.dr, 180 MG PO Q12H, TAB 05/08/24 Melatonin/Pyridoxine HCl (B6) (Melatonin 3 mg Tablet) 3 Mg-10 Mg Tablet, 2 EACH PO HS, TAB 05/08/24 Labetalol HCl (Labetalol HCl) 300 Mg Tablet, 600 MG PO BID, TAB 05/08/24 Isosorbide Mononitrate (Isosorbide Mononitrate) 20 Mg Tablet, 60 MG PO BID, TAB 05/08/24 Gabapentin (Neurontin) 300 Mg Capsule, 300 MG PO DAILY, CAP 05/08/24 Furosemide (Furosemide) 40 Mg Tablet, 40 MG PO BID, TAB 05/08/24 Famotidine (Famotidine) 20 Mg Tablet, 20 MG PO ACBKFST, TAB 05/08/24 Doxazosin Mesylate (Doxazosin Mesylate) 8 Mg Tablet, 8 MG PO BID, TAB 05/08/24 Atorvastatin Calcium (LIPITOR) 10 Mg Tab, 10 MG PO HS, TAB 05/08/24 Past Medical History Past Medical History: Hypertension, Renal Disese Past Surgical History: Appendectomy, Cholecystectomy, Other Surgical History Other: KIDNEY TRANSPLANT, BILATERAL KNEE SX ROS Dictation CONSTITUTIONAL: NO CHILLS, NO FEVER, NO WEAKNESS, NO DIAPHORESIS, NO MALAISE. HEAD/FACE: NO SIGNS OF TRAUMA. EENT: NO EYE PAIN, NO BLURRED VISION, NO TEARING, NO DOUBLE VISION, NO EAR PAIN, NO EAR DISCHARGE, NO NOSE PAIN, NO NASAL CONGESTION, NO THROAT PAIN, NO THROAT SWELLING, NO MOUTH PAIN. RESPIRATORY: NO COUGH, NO ORTHOPNEA, NO SOB, NO STRIDOR, NO WHEEZING. CARDIOVASCULAR: NO CHEST PAIN, NO EDEMA, NO PALPITATIONS, NO SYNCOPE. GASTROINTESTINAL/ABDOMINAL: NO ABDOMINAL PAIN, NO CONSTIPATION, NO DIARRHEA, NAUSEA, VOMITING. GENITOURINARY: NO ABNORMAL DISCHARGE, NO DYSURIA, NO FREQUENT URINATION, NO HEMATURIA. NO COMPLAINTS OF PAIN IN THE GENITALS. MUSCULOSKELETAL: NO BACK PAIN, NO GOUT, NO JOINT PAIN, NO JOINT SWELLING, NO MUSCLE PAIN, NO MUSCLE STIFFNESS, NO NECK PAIN. INTEGUMENTARY: NO CHANGE IN COLOR, NO CHANGE IN HAIR/NAILS, NO DRYNESS, NO LESION, NO LUMPS, NO RASH. NEUROLOGICAL/PSYCH: NO ANXIETY, NOT DEPRESSED, NO EMOTIONAL PROBLEM, NO HEADACHE, NO NUMBNESS, NO PRE-EXISTING DEFICIT, NO HISTORY OF SEIZURES, NO STEVE MORS, NO WEAKNESS. HEMATOLOGIC/LYMPHATIC: NOT ANEMIC, NO HISTORY OF BLOOD CLOTS, NO APPARENT BLEEDING, NO BRUISING, GLANDS NOT SWOLLEN. ALL SYSTEMS NEGATIVE, EXCEPT NOTED. Physical Exam Physical Exam Dictation VITAL SIGNS: REVIEWED. GENERAL APPEARANCE: ALERT, ORIENTED X3, NO ACUTE DISTRESS, OBESE. HEAD AND FACE: NON-TRAUMATIC. EYES: PERRL, PINK CONJUNCTIVAS, EYELID NO TRAUMA, ANTERIOR CHAMBER CLEAR. EARS: PINNAS INTACT AND NO SIGNS OF TRAUMA OR ERYTHEMA. EAR CANALS CLEAR AND NO DISCHARGE. TMS NO ERYTHEMA. NOSE: NO DISCHARGE, NO BLEEDING. OROPHARYNX: MOUTH NORMAL, TEETH NO CARIES, TONGUE PINK. PHARYNX CLEAR, NO ERYTHEMA. TONSILS NO EXUDATES, NO ABSCESSES NOTED. MUCOUS MEMBRANE MOIST. NECK: SUPPLE, NON-TENDER, NO THYROMEGALY, NO MASSES, NO JVD, NO BRUITS. BREAST: DEFERRED. CHEST: NO TENDERNESS, NO CREPITUS, NO PARADOXICAL MOVEMENT, NO RETRACTIONS. LUNGS: CLEAR, WELL-VENTILATED, SYMMETRIC, NO RALES, NO WHEEZING, NO RHONCHI, NO STRIDOR, GOOD BREATH SOUNDS BILATERALLY. HEART: REGULAR RATE, REGULAR RHYTHM, NO MURMUR, NO GALLOPS. VASCULAR: NO PERIPHERAL EDEMA. ABDOMEN: SOFT, POSITIVE BOWEL SOUNDS, DISTENDED, NO GUARDING, NONTENDER, NO REBOUND, NO MASSES NO HEPATOMEGALY, NO SPLENOMEGALY, NO MARTÍNEZ'S SIGN, NO HERNIAS. RECTAL: DEFERRED. GENITAL: DEFERRED. NEUROLOGICAL: NORMAL SPEECH, GROSS MOTOR FUNCTION INTACT, GROSS SENSORY FUN CTION INTACT. MUSCULOSKELETAL: NECK NONTENDER, FULL RANGE OF MOTION, BACK NONTENDER, FULL RANGE OF MOTION. EXTREMITIES: NONTENDER, FULL RANGE OF MOTION. SKIN: COLOR PINK, DRY, NO TURGOR, NO RASH, NO LACERATIONS, NO ABRASIONS, NO CONTUSIONS. LYMPHATICS: DEFERRED. Results Laboratory and Microbiology Lab and Micro Result Laboratory Tests Test 09/01/24 23:42 White Blood Count 18.4 K/uL (4.8-10.8) H Red Blood Count 3.13 MIL/uL (4.50-6.20) L Hemoglobin 9.9 g/dL (14.0-18.0) L Hematocrit 28.9 % (42-54) L Mean Corpuscular Volume 92.3 fL (79-99) Mean Corpuscular Hemoglobin 31.6 pg (27.0-33.0) Mean Corpuscular Hemoglobin Concent 34.3 g/dL (32.0-36.0) Red Cell Distribution Width 16.2 % (11.0-15.5) H Platelet Count 302 K/uL (130-400) Mean Platelet Volume 9.8 fL (7.5-10.5) Immature Granulocyte % (Auto) 0.4 % (0-1) Neutrophils (%) (Auto) 86.1 % (40.0-77.0) H Lymphocytes (%) (Auto) 9.7 % (21.0-51.0) L Monocytes (%) (Auto) 3.7 % (3.0-13.0) Eosinophils (%) (Auto) 0.0 % (0.0-8.0) Basophils (%) (Auto) 0.1 % (0.0-5.0) Neutrophils # (Auto) 15.8 K/uL (1.8-7.7) H Lymphocytes # (Auto) 1.8 K/uL (1.0-4.8) Monocytes # (Auto) 0.7 K/uL (0.1-1.0) Eosinophils # (Auto) 0.00 K/uL (0.00-0.70) Basophils # (Auto) 0.01 K/uL (0.00-0.20) Absolute Immature Granulocyte (auto 0.08 K/uL (0-1) Nucleated Red Blood Cells 0.0 % (0.0-0.19) White Cell Morphology Comment See comments Sodium Level 143 mmol/L (136-145) Potassium Level 4.0 mmol/L (3.5-5.1) Chloride Level 102 mmol/L (101-111) Carbon Dioxide Level 27 mmol/L (21-32) Blood Urea Nitrogen 69 mg/dL (7-18) H Creatinine 7.2 mg/dL (0.5-1.3) H Glomerular Filtration Rate Calc 8 mL/min (>90) Random Glucose 136 mg/dL (70-105) H Total Calcium 9.8 mg/dL (8.5-10.1) Total Bilirubin 0.4 mg/dL (0.2-1.0) Aspartate Amino Transf (AST/SGOT) 22 U/L (10-37) Alanine Aminotransferase (ALT/SGPT) 27 U/L (12-78) Alkaline Phosphatase 89 U/L (50-136) Total Creatine Kinase 283 U/L (21-232) #H Troponin I High Sensitivity 19 ng/L (4-75) Total Protein 6.9 g/dL (6.0-8.3) Albumin 3.2 g/dL (3.5-5.0) L Lipase 48 U/L (16-77) Labs Reviewed?: Yes EKG/XRAY/US/CT/MRI EKG Comment 09/01/2024 TIME 11:49 P.M. VENTRICULAR RATE 65 SINUS RHYTHM IN [address] WAVE ELEVATION OR DEPRESSION CT Scan Comment [place] [id number] [place] [id number] IMAGING REPORT Signed PATIENT: ANCA VASQUEZ MR#: [id number] : 1955 SEX: M AGE: 69 LOCATION: [facility] ORDER STATUS: REG ER REPORT#: [id number] SERVICE REASON: ABD PAIN, DISTENSION ORDERING PHYSICIAN: HIREN FRASER MD PROCEDURE: ABD PEL WO - CT ABDOMEN/PELVIS W/O CONTRAST CT ABDOMEN/PELVIS W/O CONTRAST HISTORY: Abdominal pain COMPARISON: 05/08/2024 TECHNIQUE: Multiple sequential axial images of the abdomen and pelvis were obtained from the dome of the diaphragm through symphysis pubis. Patient was not given contrast through intravenous route. Oral contrast was not given. FINDINGS: No pleural effusion is seen bilaterally. There is no evidence of parenchymal disease or pulmonary nodule of the visualized lower lungs. Degenerative changes of the thoracolumbar spine are present. The heart is not enlarged. Liver measures 17 cm. Post cholecystectomy changes are seen. There is right adrenal nodule measuring 14 mm. There are bilateral renal atrophy. There are bilateral renal cysts with the largest on the left measuring 2.2 cm The liver, spleen, left adrenal gland and pancreas are unremarkable. There is no evidence of hydronephrosis bilaterally. No evidence of renal stone is seen. Transplant kidney is seen in the right lower abdomen without hydronephrosis. There is mild diverticulosis. Fecal material is seen in the colon. There are normal size retroperitoneal and mesenteric lymph nodes. No ascites is seen. Atherosclerotic changes are present. Pelvic sidewalls are symmetric bilaterally. Bladder is well distended without wall thickening. IMPRESSION: 1. Bilateral renal atrophy. Transplant kidney in the right lower abdomen without hydronephrosis. Mild diverticulosis. Fecal material in the colon. No ascites. CT was performed with one or more following dose reduction techniques: automated exposure control, adjustment of the mA and kv according to patient's size, or use of a iterative reconstruction technique. DICTATED BY: RANDY JOLLY MD DATE: 09/02/24101 ELECTRONICALLY SIGNED BY: RANDY JOLLY MD DATE: 09/02/24108 [facility] MDM: DIFFERENTIAL DIAGNOSIS: GASTRITIS, MEDICATION SIDE EFFECT, CONSTIPATION, DIVERTICULOSIS PATIENT IS A 69-YEAR-OLD GENTLEMAN COMING IN TO BE EVALUATED FOR ABDOMINAL DISCOMFORT AND NAUSEOUSNESS. PATIENT STATES THAT THE SYMPTOMS BEGAN YESTERDAY. SHORTLY FOR THAT PATIENT STATES THAT HE HAS BEEN TAKING BACLOFEN AND PREDNISONE. HE WAS GIVEN THESE MEDICATIONS BY PCP FOR A TORTICOLLIS. THROUGHOUT ER VISIT PATIENT HAS BEEN STABLE WHITE BLOOD CELL COUNT MILDLY ELEVATED COULD BE RELATED TO STEROID USAGE AND STRESS DEMARGINATION. CT DID NOT DISCLOSE ACUTE FINDINGS THAT WOULD INDICATE A INFECTIOUS PROCESS IN THE ABDOMEN. PATIENT WILL BE DISCHARGED IN STABLE CONDITION WITH A DIAGNOSIS OF MEDICATION GASTRITIS. PATIENT WAS TOLERATING ORAL INTAKE IN THE ER. PATIENT WILL RECEIVE ZOFRAN AND PROTONIX TO HELP SOOTHE STOMACH. ED Course Orders Procedure Category Date Status Time Cbc With Differential LAB 09/01/24 Complete 23:35 Comprehensive LAB 09/01/24 Complete Metabolic Panel 23:35 Troponin I High LAB 09/01/24 Complete Sensitivity 23:35 Urinalysis Profile LAB 09/01/24 Logged 23:35 12 Lead Ekg Tracing- EKG 09/01/24 Logged Technical 23:35 Ondansetron 4mg Inj PHA 09/02/24 Complete (Zofran 4mg Inj) 00:00 Pantoprazole 40mg Inj PHA 09/02/24 Complete (Protonix 40mg Inj 00:00 Creatine Kinase, Total LAB 09/01/24 Complete 23:35 Lipase LAB 09/01/24 Complete 23:35 Ct Abdomen/Pelvis W/O CT 09/02/24 Resulted Contrast 00:20 Mag/Alum/Simeth 30ml PHA 09/02/24 Complete (Maalox Plus 30ml) 01:30 Current Medications Medications (Trade) Dose Ordered Sig/Arturo Route PRN Reason Start Time Stop Time Status Last Admin Dose Admin Al Hydroxide/Mg Hydroxide (MAALox PLUS 30ML) 30 ml ONCE ONCE PO 09/02/24 01:30 09/02/24 01:31 DC 09/02/24 01:25 Ondansetron HCl (zoFRAN 4MG INJ) 4 mg ONCE ONCE IVP 09/02/24 00:00 09/02/24 00:01 DC 09/01/24 23:49 Pantoprazole Sodium (PROTonix 40MG INJ) 40 mg ONCE ONCE IVP 09/02/24 00:00 09/02/24 00:01 DC 09/01/24 23:49 Vital Signs Date Time Temp Pulse Resp B/P (MAP) Pulse Ox O2 Delivery O2 Flow Rate FiO2 09/01/24 23:24 97.9 64 17 164/88 95 Room Air 0 DX & DISP Disposition: Discharge Departure Impression: Primary Impression: Diverticulosis Additional Impressions: Gastritis, Current use of steroid medication Condition: Stable Scripts Ondansetron (Ondansetron Odt) 4 Mg Tab.rapdis 4 MG PO BID PRN for NAUSEA/VOMITING for 3 Days, #6 TAB Prov: HIREN FRASER MD 09/02/24 Pantoprazole Sodium (Protonix) 40 Mg Ectab 1 TAB PO DAILY for 30 Days, #30 TAB 0 Refills Prov: HIREN FRASER MD 09/02/24 Additional Instructions: FOLLOW-UP WITH PRIMARY CARE PROVIDER IN 1 TO 2 DAYS. TAKE MEDICATIONS DIRECTED HERE IN THE EMERGENCY ROOM. OKAY TO CONTINUE HOME MEDICATIONS UNLESS OTHERWISE DISCUSSED DURING YOUR VISIT IN THE EMERGENCY ROOM TODAY. RETURN TO YOUR NEAREST EMERGENCY ROOM IF SYMPTOMS WORSEN OR IF THERE IS NO IMPROVEMENT. CALL 911 IF YOU NEED IMMEDIATE ASSISTANCE. TAKE TYLENOL [id number] NE EDED AND IF NO CONTRAINDICATIONS ARE PRESENT. INCREASE ORAL HYDRATION. A WOUND CULTURE OR URINE CULTURE WAS ORDERED HERE IN THE EMERGENCY ROOM DEPARTMENT PLEASE FOLLOW-UP WITH PRIMARY CARE PROVIDER AND ADVISE THEM TO GET REPEAT PORTS FROM OUR FACILITY. IF YOU HAD ANY STEFANO WRAP/SPLINTS THAT WERE APPLIED HERE, PLEASE DO NOT REMOVE THEM UNTIL YOU SEE YOUR PRIMARY CARE OR SPECIALTY. REFERRALS: Referrals: KIAH LEVIN MD (PCP) Time of Disposition: 01:58 HIREN FRASER MD Sep 01, 2024 23:54
[2024-09-01 23:57] LABS: BASOPHILS # (AUTO) 0.01 K/uL (0.00-0.20); BASOPHILS % (AUTO) 0.1 % (0.0-5.0); HEMATOCRIT 28.9 % (42-54); IMMATURE GRANULOCYTE ABSOLUTE 0.08 K/uL (0-1); LYMPHOCYTES # (AUTO) 1.8 K/uL (1.0-4.8); LYMPHOCYTES % (AUTO) 9.7 % (21.0-51.0); MEAN CORPUSCULAR HEMOGLOBIN 31.6 pg (27.0-33.0); MEAN CORPUSCULAR HGB CONC 34.3 g/dL (32.0-36.0); MEAN CORPUSCULAR VOLUME 92.3 fL (79-99); MONOCYTES # (AUTO) 0.7 K/uL (0.1-1.0); MONOCYTES % (AUTO) 3.7 % (3.0-13.0); NEUTROPHILS # (AUTO) 15.8 K/uL (1.8-7.7); NEUTROPHILS % (AUTO) 86.1 % (40.0-77.0); PLATELET COUNT (AUTO) 302 K/uL (130-400); RED BLOOD CELL COUNT(AUTO) 3.13 MIL/uL (4.50-6.20); RED CELL DISTRIBUTION WIDTH 16.2 % (11.0-15.5); WHITE BLOOD COUNT (AUTO) 18.4 K/uL (4.8-10.8)
[2024-09-02 00:09] LABS: CREATININE 7.2 mg/dL (0.5-1.3)
[2024-09-02 00:13] LABS: ALBUMIN 3.2 g/dL (3.5-5.0); BILIRUBIN,TOTAL 0.4 mg/dL (0.2-1.0); TOTAL PROTEIN, SERUM 6.9 g/dL (6.0-8.3)
--- NOTE | 2024-09-02 01:09 | HMCIMG ---
CT ABDOMEN/PELVIS W/O CONTRAST HISTORY: Abdominal pain COMPARISON: 05/08/2024 TECHNIQUE: Multiple sequential axial images of the abdomen and pelvis were obtained from the dome of the diaphragm through symphysis pubis. Patient was not given contrast through intravenous route. Oral contrast was not given. FINDINGS: No pleural effusion is seen bilaterally. There is no evidence of parenchymal disease or pulmonary nodule of the visualized lower lungs. Degenerative changes of the thoracolumbar spine are present. The heart is not enlarged. Liver measures 17 cm. Post cholecystectomy changes are seen. There is right adrenal nodule measuring 14 mm. There are bilateral renal atrophy. There are bilateral renal cysts with the largest on the left measuring 2.2 cm The liver, spleen, left adrenal gland and pancreas are unremarkable. There is no evidence of hydronephrosis bilaterally. No evidence of renal stone is seen. Transplant kidney is seen in the right lower abdomen without hydronephrosis. There is mild diverticulosis. Fecal material is seen in the colon. There are normal size retroperitoneal and mesenteric lymph nodes. No ascites is seen. Atherosclerotic changes are present. Pelvic sidewalls are symmetric bilaterally. Bladder is well distended without wall thickening. IMPRESSION: 1. Bilateral renal atrophy. Transplant kidney in the right lower abdomen without hydronephrosis. Mild diverticulosis. Fecal material in the colon. No ascites. CT was performed with one or more following dose reduction techniques: automated exposure control, adjustment of the mA and kv according to patient's size, or use of a iterative reconstruction technique.
[2024-09-02] MEDS: MAG/ALUM/SIMETH 30 ML UDCUP PO ONE (01:25)
[2024-09-02] MEDS ORDERED: PANT40TA55 PO (01:59)
[2024-09-02] MEDS ORDERED: ONDA-243 PO (01:59)
[2024-09-02 02:10] VITALS: BP 149/86; PULSE 60; RESP 18; TEMP 98.4; O2SAT 97
--- NOTE | 2024-09-02 23:41 | EKG ---
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
== END 2024-09-02 02:14 | disposition home or self-care (01) ==
LOC: EDH 23:22
DX: K57.30 Diverticulosis of large intestine without perforation or abscess without bleeding (principal); K29.70 Gastritis, unspecified, without bleeding; I12.0 Hypertensive chronic kidney disease with stage 5 chronic kidney disease or end stage renal disease; N18.6 End stage renal disease; Z79.52 Long term (current) use of systemic steroids; Z79.82 Long term (current) use of aspirin; Z79.899 Other long term (current) drug therapy; Z88.7 Allergy status to serum and vaccine; Z90.49 Acquired absence of other specified parts of digestive tract; Z94.0 Kidney transplant status; Z99.2 Dependence on renal dialysis
CPT/HCPCS: 99285; 96374; 96375; 82550; 84484; 80053; 83690; 85025; 36415; 93005; 74176; J2405; J2470

== ENCOUNTER 2025-06-13 00:17 | Observation (INO) | payer MEDICARE ==
[~2025-06-13] VITALS: Ht 170.2 cm; Wt 105.2 kg
[2025-06-13] VITALS (29 sets, daily range): BP systolic 149–195; BP diastolic 78–116; PULSE 65–83; RESP 14–22; TEMP 97.5–99.5; O2SAT 93–95
[~2025-06-13 00:17] MED LIST changes: -ASPI-1005 PO; -DOXA8TAB81 PO; +GABA-529 PO; -GABA300C PO; +LABE200T7 PO; -LABE300T4 PO; -MELA1TAB28 PO; -NIFE-79 PO; -PRED10TA3 PO; +SEVE0.8P PO; -SODI650T PO; -TAMS-1 PO; +TAMS-55 PO; -[UNRECOGNIZED DRUG - CODE] PO
--- NOTE | 2025-06-13 00:34 | ERN ---
ED Note History of Present Illness Stated Complaint: C/O SOB Chief Complaint: Shortness of Breath Time Seen by MD: 00:24 Dictation: This is a 70-year-old male with multiple medical problems presented to the emergency room with complaints of shortness of breath. Patient and spouse sarah emery to [facility] and he had his last hemodialysis on Tuesday in [facility]. Patient's reported that they did not remove enough fluid and he usually has a about 3-1/2 L removed. They had a very long flight from the [facility] to [facility] whole day and then to [place] eventually locally. Patient has been on methimazole for thyrotoxicosis. He has a known history of end-stage renal disease on hemodialysis-[facility] schedule. 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, resistant hypertension, hypercholesterolemia, hyperthyroidism with the episode of thyrotoxicosis, atrial fibrillation-December 2024, severe agitation myoclonic jerking during December 2024 admission Allergies: Coded Allergies: Tetanus Vaccines and Toxoid (Unverified Allergy, Mild, ITCHING, 12/24/24) Home Meds Reported Medications Methimazole (Methimazole) 10 Mg Tablet, 30 MG PO DAILY, TAB 06/13/25 Metoprolol Succinate (Metoprolol Succinate) 100 Mg Tab.er.24h, 1 TAB PO DAILY for 30 Days, #30 TAB 0 Refills 06/13/25 Apixaban (Eliquis) 2.5 Mg Tablet, 1 TAB PO BID for 30 Days, #60 TAB 0 Refills 06/13/25 Levetiracetam (Keppra) 500 Mg Tablet, 1 TAB PO BID for 30 Days, #60 TAB 0 Refills 06/13/25 Atorvastatin Calcium (LIPITOR) 10 Mg Tab, 10 MG PO HS, TAB 05/08/24 Discontinued Reported Medications Sevelamer Carbonate (Renvela) 0.8 Gram Powd.pack, 2.4 GM PO TIDAC 12/24/24 Gabapentin (Gabapentin) 100 Mg Capsule, 100 MG PO DAILY, CAP 12/24/24 Labetalol HCl (Labetalol HCl) 200 Mg Tablet, 1 TAB PO BID for 30 Days, #60 TAB 0 Refills 12/24/24 Tamsulosin HCl (Flomax) 0.4 Mg Cap.er.24h, 0.4 MG PO DAILY, CAPSULE. 05/08/24 Isosorbide Mononitrate (Isosorbide Mononitrate) 20 Mg Tablet, 60 MG PO BID, TAB 05/08/24 Furosemide (Furosemide) 40 Mg Tablet, 40 MG PO BID, TAB 05/08/24 Famotidine (Famotidine) 20 Mg Tablet, 20 MG PO ACBKFST, TAB 05/08/24 Past Medical History Past Medical History: A-Fib, CAD, CHF, High Cholesterol, Hyperthyroid, Renal Disese Additional Past Medical Hx: HD, CHRONIC BACK PAIN Surgical History: Cholecystectomy Surgical History Other: PERCATH, BILATE KNEE, BACK, RENAL TRANSPLANT Family History: Negative RN Note Reviewed/Agreed w/PFSH: Yes Review of System Dictation Constitutional: Negative for fever,chills, and weight loss Eyes: Negative for injury, pain,redness, and discharge ENT: Negative for injury,pain or swelling Cardiovascular: Negative for chest pain, palpitations, and edema Respiratory: Positive for shortness of breath, cough, and wheezing, Abdomen/GI: Negative for abdominal pain, nausea, vomiting, diarrhea, and constipation Back: Negative for injury and pain : Negative for injury, bleeding and discharge MS/Extremity: Negative for injury and deformity Skin: Negative for rash, and discoloration Neuro: Negative for headache, weakness, numbness, tingling, and seizure Psych: Negative for suicide ideation, homicidal ideation, and hallucinations Initial Vital Sign VS Vital Signs Date Time Temp Pulse Resp B/P (MAP) Pulse Ox O2 Delivery O2 Flow Rate FiO2 06/13/25 00:18 97.2 74 20 163/73 94 Room Air 06/13/25 00:37 0 21 Physical Exam Dictation General: awake, alert, NAD morbidly obese male, very coarse features of thyroid disease, mild tachypnea Head/Face: Normocephalic, atraumatic Eyes: PERRL, EOMI, vision at baseline ENT: oral cavity clear, TMs clear, no signs of infection glossomegaly Neck: Trachea midline, supple, no nuchal rigidity Cardiovascular: RRR, normal S1/S2, No MRGs, no JVD Respiratory: Decreased breath sounds and bibasilar crackles Abdomen: Soft, non-tender, non-distended, normal bowel sounds, no guarding or rebound. Skin: Warm, dry, normal turgor, no rash MS/Extremity: Pulses equal, no cyanosis, neurovascular intact, FROM Neuro: COAx4, GCS 15, strength 5/5, CN 2-12 intact, normal cerebellar exam, normal gait, Psych: Normal behavior, mood, and affect normal Extremities-1+ pitting edema without any palpable cords, Homans sign is negative Results (Laboratory/Radiology) Laboratory/Radiology Laboratory Tests Test 06/13/25 00:35 06/13/25 00:45 06/13/25 03:19 White Blood Count 10.8 K/uL (4.8-10.8) Red Blood Count 3.21 MIL/uL (4.50-6.20) L Hemoglobin 10.7 g/dL (14.0-18.0) L Hematocrit 32.2 % (42-54) L Mean Corpuscular Volume 100.3 fL (79-99) H Mean Corpuscular Hemoglobin 33.3 pg (27.0-33.0) H Mean Corpuscular Hemoglobin Concent 33.2 g/dL (32.0-36.0) Red Cell Distribution Width 15.2 % (11.0-15.5) Platelet Count 362 K/uL (130-400) Mean Platelet Volume 9.3 fL (7.5-10.5) Immature Granulocyte % (Auto) 0.6 % (0-1) Neutrophils (%) (Auto) 68.9 % (40.0-77.0) Lymphocytes (%) (Auto) 19.8 % (21.0-51.0) L Monocytes (%) (Auto) 8.1 % (3.0-13.0) Eosinophils (%) (Auto) 2.0 % (0.0-8.0) Basophils (%) (Auto) 0.6 % (0.0-5.0) Neutrophils # (Auto) 7.4 K/uL (1.8-7.7) Lymphocytes # (Auto) 2.1 K/uL (1.0-4.8) Monocytes # (Auto) 0.9 K/uL (0.1-1.0) Eosinophils # (Auto) 0.22 K/uL (0.00-0.70) Basophils # (Auto) 0.06 K/uL (0.00-0.20) Absolute Immature Granulocyte (auto 0.07 K/uL (0-1) Nucleated Red Blood Cells 0.0 % (0.0-0.19) Sodium Level 141 mmol/L (136-145) Potassium Level 5.6 mmol/L (3.5-5.1) H Chloride Level 102 mmol/L (101-111) Carbon Dioxide Level 20 mmol/L (21-32) L Blood Urea Nitrogen 101 mg/dL (7-18) *H Creatinine 16.2 mg/dL (0.5-1.3) *H Glomerular Filtration Rate Calc 3 mL/min (>90) Random Glucose 90 mg/dL (70-105) Lactic Acid Level 1.3 mmol/L (0.8-2.5) Total Calcium 8.7 mg/dL (8.5-10.1) Total Creatine Kinase 245 U/L (21-232) #H Troponin I High Sensitivity 135.6 ng/L (4-75) *H B-Type Natriuretic Peptide 3000 pg/mL (0-100) H Thyroid Stimulating Hormone (TSH) 16.79 uIU/mL (0.36-3.74) #H Influenza Type A Antigen Negative For Type A Influenza Type B Antigen Negative For Type B SARS-CoV-2, RNA, NAAT NEGATIVE SARS CoV-2 Group A Streptococcus Rapid negative (NEGATIVE) Urine Color COLORLESS (YELLOW) Urine Appearance CLEAR (CLEAR) Urine pH 7.5 (5.0-8.0) Urine Specific [place] 1.010 (1.001-1.031) Urine Protein 70 mg/dL (NEGATIVE) H Urine Glucose (UA) TRACE mg/dL (NEGATIVE) H Urine Ketones NEGATIVE mg/dL (NEGATIVE) Urine Occult Blood SMALL (NEGATIVE) H Urine Nitrate NEGATIVE (NEGATIVE) Urine Bilirubin NEGATIVE mg/dL (NEGATIVE) Urine Urobilinogen 0.2 mg/dL (0.2-1.0) Urine Leukocyte Esterase NEGATIVE Real/uL Urine RBC 0-1 /HPF (0-1) Urine WBC 2-5 /HPF (0-1) H Urine Squamous Epithelial Cells RARE /HPF (0-2) Urine Bacteria None /HPF (None Seen) Labs Reviewed?: Yes EKG Comment: 12 lead EKG done on 06/13/2025 at 12:44 a.m. showed a heart rate of 65, SD interval 183, QRS 91, QT/QTC 431/447. Impression normal sinus rhythm with sinus bradycardia nonspecific ST-T changes. No acute ST-T elevations noted. EKG rhythm strip shows a normal sinus rhythm with a no acute STT wave changes. Interpreted by ER MD Dr. Ruelas X-RAY Comment: Cardiomegaly with pulmonary edema ED Course ED Course Orders Procedure Category Date Status Time Cardiac Panel LAB 06/13/25 Complete 00:30 Cbc With Differential LAB 06/13/25 Complete 00:30 Basic Metabolic Panel LAB 06/13/25 Complete 00:30 Urinalysis Profile LAB 06/13/25 Complete 00:30 Thyroid Stimulating LAB 06/13/25 Complete Hormone 00:30 B-Type Natriuretic LAB 06/13/25 Complete Peptide 00:30 Lactic Acid LAB 06/13/25 Complete 00:30 Creatine Kinase, Total LAB 06/13/25 Complete 00:30 Chest 1vw RAD 06/13/25 Resulted 00:30 12 Lead Ekg Tracing- EKG 06/13/25 Complete Technical 00:30 Covid Rna Naat LAB 06/13/25 Complete 00:37 Influenza Type A & B, LAB 06/13/25 Complete Rapid 00:37 Rapid (Group A Strep) LAB 06/13/25 Complete 00:37 Us Venous Doppler US 06/13/25 Resulted Bilateral 01:28 Edm Admit Bridge Order ADM 06/13/25 Transmitted 01:39 Nephrology Consult CONPHYSVC 06/13/25 Transmitted 01:39 Vital Signs(Adult CPOE 06/13/25 Transmitted Hospitalist) 02:02 Nurse To Enter Home CPOE 06/13/25 Transmitted Medication 02:02 Admit Orders ADM 06/13/25 Transmitted 02:02 Renal Dialysis Diet DIET 06/13/25 Transmitted Breakfast *Nursing CPOE 06/13/25 Transmitted Communication: 02:02 Furosemide 40mg Vial PHA 06/13/25 In Process (Lasix 40mg Vial) 02:30 Nephrology Consult CONPHYSVC 06/13/25 Transmitted 02:11 Obtain Consent For CPOE 06/13/25 Transmitted Hemodialysi 02:26 Consult [facility] [place] DIALYCON 06/13/25 Transmitted Dialysis 02:26 Vital Signs Date Time Temp Pulse Resp B/P (MAP) Pulse Ox O2 Delivery O2 Flow Rate FiO2 06/13/25 02:59 63 16 165/73 99 Nasal Cannula* 3 32 06/13/25 02:22 97.5 65 16 171/86 99 Nasal Cannula* 3 32 06/13/25 01:12 66 18 183/79 100 Nasal Cannula* 2 28 06/13/25 00:37 97.3 70 26 223/115 95 Room Air* 0 21 06/13/25 00:18 97.2 74 20 163/73 94 Room Air We will perform diagnostic labs, advanced imaging and administer medications according to the patient's complaint. Once the results are available, will review and personally interpreted the labs to rule out any acute life- threatening emergency the trach require immediate intervention and treatment. I will then re-evaluate the patient after treatment and diagnostic exams have return to determine whether the patient requires any further testing, can safely be discharged home or need further admission to hospital for additional treatment and evaluation. 1:37 a.m. patient accepted by admission and further management Medical Decision Making MDM Differential diagnosis: Pulmonary edema, decompensated congestive heart failure-diastolic, thyroid cardiomyopathy, pulmonary thromboembolic disease This is a 70-year-old male with multiple medical problems presented to the [facility] room with complaints of shortness of breath. Patient and spouse travel to [facility] and he had his last hemodialysis on Tuesday in [facility]. Patient's reported that they did not remove enough fluid and he usually has a about 3-1/2 L removed. They had a very long flight from the [facility] to [facility] whole day and then to [place] eventually locally. Patient has been on methimazole for thyrotoxicosis. He has a known history of end-stage renal disease on hemodialysis-[facility] schedule. Temperature 97.1 pulse 74 respirations 20 blood pressure 163/73 with a pulse oximetry of 94% on room air Chronic medical problems include coronary artery disease status post cardiac catheterization 2008 which showed a lady stenosis, failed renal transplant in 2016 on maintenance hemodialysis, resistant hypertension, hypercholesterolemia, hyperthyroidism with the episode of thyrotoxicosis, atrial fibrillation-December 2024, severe agitation myoclonic jerking during December 2024 admission 1:10 a.m. Labs reviewed CBC showed a white count of 10.8 hemoglobin 10.7. 1:30 a.m. BNP 7 showed a potassium of 5.6 BUN and creatinine are 101 and 16.2. Troponin 135 brain natriuretic peptide 3000 TSH 16.79 Chest x-ray shows cardiomegaly and bilateral pulmonary edema pattern. Lactic acid is 1.3 swabs for COVID and influenza are negative. I updated the patient and spouse on all the available tests and my thoughts that perhaps this may simply be pulmonary edema needing dialysis however due to oversees flight possibility of venous thromboembolic disease is considered and discussed the plan of pursuing the venous Doppler studies of lower extremities. And I recommended admission to the hospital and they are agreeable 1:[address] Cat Casey about patient needing hemodialysis due to pulmonary edema and dyspnea. He recommended admission and having the RN contact her for dialysis orders. Rationale: Tests considered and ordered secondary to shared decision making include: labs, ECG and radiology Previous outside records reviewed: Old ER visits. Risk of complication and/or morbidity or mortality of patient management: None Medications-Per medication reconciliation Need for hospitalization: Patient does meet criteria for hospitalization. Need for emergency major/minor surgery: No There are no social concerns with this patient. Prescription drug management Prescriptions will include symptomatic care Patient's prior external medical records from other ER visits were reviewed by me as indicated. Prior testing and results from previous visits were reviewed. Prior tests were taken into account with medical decision making and resource utilization, independent historian/historians were used to obtain complete medical history. I independently interpreted the test that were performed, results were reviewed by me and considered findings on radiology if ordered. Medical management and examination interpretation discussions were had by me with other qualified healthcare professionals as indicated for the patient's care. Problem List Problem List: (1) Acute pulmonary edema (2) History of atrial fibrillation (3) End-stage renal disease on hemodialysis (4) Elevated TSH DX & DISP Disposition: Inpatient Decision to Admit Time: 01:30 Departure Impression: Primary Impression: Acute pulmonary edema Additional Impressions: End-stage renal disease on hemodialysis, History of atrial fibrillation, Elevated TSH Condition: Stable Additional Instructions: Patient was informed of all the diagnostic labs and procedures conducted in the emergency room today and demonstrated understanding of the results. I personally reviewed and interpreted all the diagnostic exams performed in the ER today. The patient will be admitted to the hospital for further treatment and evaluation. Disposition-admit to facility Condition-stable/guarded Course-uncertain at this time Pain status-decreased Assessment-exam unchanged Admission Certification- I certify that the patients status is appropriate and is based on my best clinical judgment and the patient's condition as documented in the medical records Referrals: KIAH LEVIN MD (PCP) ALLEGRA RUELAS MD Jun 13, 2025 00:34
[2025-06-13 00:48] LABS: IMMATURE GRANULOCYTE ABSOLUTE 0.07 K/uL (0-1); NUCLEATED RED BLOOD CELLS 0.0 % (0.0-0.19); PLATELET COUNT (AUTO) 362 K/uL (130-400); RED BLOOD CELL COUNT(AUTO) 3.21 MIL/uL (4.50-6.20); RED CELL DISTRIBUTION WIDTH 15.2 % (11.0-15.5); WHITE BLOOD COUNT (AUTO) 10.8 K/uL (4.8-10.8)
[2025-06-13 01:05] LABS: RAPID GROUP A STREP negative (NEGATIVE)
--- NOTE | 2025-06-13 01:10 | EKG ---
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
[2025-06-13 01:11] LABS: SARS-CoV-2, RNA, NAAT NEGATIVE SARS CoV-2 (NEGATIVE)
[2025-06-13 01:14] LABS: INFLUENZA TYPE A Negative For Type A (NEGATIVE); INFLUENZA TYPE B Negative For Type B (NEGATIVE)
[2025-06-13 01:18] LABS: CREATINE KINASE, TOTAL 245.0 U/L (21-232); GLOMERULAR FILTR. RATE CALC 3.0 mL/min (>90); GLUCOSE,RANDOM 90.0 mg/dL (70-105); SODIUM SERUM 141.0 mmol/L (136-145)
[2025-06-13 01:20] LABS: CREATININE 16.2 mg/dL (0.5-1.3); UREA NITROGEN, BLOOD 101.0 mg/dL (7-18)
--- NOTE | 2025-06-13 01:51 | HMCIMG ---
EXAM: CR Chest, 1 view CLINICAL HISTORY: Shortness of breath. COMPARISON: None provided. FINDINGS: The left-sided dual-lumen catheter tip overlies the proximal superior vena cava. Mild cardiomegaly, pulmonary vascular congestion, and diffuse interstitial edema bilaterally. No pneumothorax. The bilateral CP angles are occluded from the image. No large pleural effusion. No acute osseous abnormality. IMPRESSION: The left-sided dual-lumen catheter tip overlies the proximal superior vena cava. Mild cardiomegaly, pulmonary vascular congestion, and diffuse interstitial edema bilaterally. /[place]
[2025-06-13] MEDS ORDERED: APIX2.5T PO (02:58)
[2025-06-13] MEDS ORDERED: METH-387 PO (02:58)
[2025-06-13] MEDS ORDERED: METO-409 PO (02:58)
[2025-06-13] MEDS ORDERED: LEVE-43 PO (02:58)
--- NOTE | 2025-06-13 02:59 | NUR ---
LINDA PEREIRA MADE AWARE OF STAT DIALYSIS ORDER
--- NOTE | 2025-06-13 03:08 | HMCIMG ---
EXAM: US for Deep Venous Thrombosis, bilateral Lower Extremity. CLINICAL HISTORY: [place] flight, dyspnea. Morbid obesity. TECHNIQUE: Real-time ultrasound scan of the veins of the bilateral lower extremity with color Doppler flow, spectral waveform analysis and compression. COMPARISON: None provided. FINDINGS: DEEP VEINS: The common femoral, superficial femoral, and popliteal veins are echolucent and compressible. There is normal color Doppler flow throughout. The visualized calf veins appear patent. SOFT TISSUES: No popliteal fossa cyst or other abnormalities. IMPRESSION: No deep venous thrombosis is evident on bilateral lower extremity examination. /[place]
--- NOTE | 2025-06-13 03:14 | NUR ---
REPORT GIVEN TO NURSE GROVES
[2025-06-13 03:28] LABS: APPEARANCE,URINE CLEAR (CLEAR); GLUCOSE, URINE (UA) TRACE mg/dL (NEGATIVE); LEUKOCYTE ESTERASE ,URINE NEGATIVE Leu/uL (NEGATIVE); NITRATE,URINE NEGATIVE (NEGATIVE); OCCULT BLOOD,URINE SMALL (NEGATIVE)
[2025-06-13 03:30] LABS: ADD UA MICROSCOPIC YES
[2025-06-13 03:31] LABS: SQUAMOUS EPITHELIAL CELL,UR RARE /HPF (0-2)
[2025-06-13] MEDS: 0.9%NACL 1000ML 1,000 ML IV SCH (06:00)
[2025-06-13] MEDS ORDERED: 0.9% NACL 250ML 250 ML IV SCH (06:00)
--- NOTE | 2025-06-13 06:50 | NUR ---
CALL PLACED TO REGARDING PATIENT WITH ELEVATED BP AT 190 SBP , CURRENTLY BEING DIALYZED. OBTAINED TELEPHONE ORDER READ BACK. WILL CONTINUE TO MONITOR.
--- NOTE | 2025-06-13 06:55 | NUR ---
IN TO SEE PATIENT, PER MD VILLASEÑOR TO FOLLOW RECOMMENDATION FOR XANAS 0.25MG PO PRN TID. ORDER NOTED AND CARRIED OUT. PATIENTS BP DOWN TO 178/93
[2025-06-13 08:20] LABS: % IRON SATURATION 25.1 % (30-44); IRON, SERUM 51.0 mcg/dL (65-175)
[2025-06-13 08:42] LABS: HIV 1&2 ANTIBODY Non-Reactive (Negative)
[2025-06-13 08:44] LABS: CREATININE 3.2 mg/dL (0.5-1.3); GLOMERULAR FILTR. RATE CALC 20.0 mL/min (>90); LDL DIRECT 92.0 mg/dL (0-99); UREA NITROGEN, BLOOD 20.0 mg/dL (7-18)
[2025-06-13] MEDS ORDERED: PHARMACY COMMUNICATION 1 EACH EACH MISC SCH (11:00)
[2025-06-13 13:53] LABS: HEPATITIS B SURFACE ANTIBODY Positive (Reactive)
--- NOTE | 2025-06-13 14:18 | EKG ---
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
--- NOTE | 2025-06-13 14:50 | NUR ---
DCP:HOME Pt currently lives at home with his Nanette Arambula [phone]. pt does not have any DME, home health, or provider services. Pt does go to dialysis at [facility] on [address]. PCP is Dr. Acevedo. At [place] pt will want to go home and family can assist with transportation. Addendum: 06/13/25 at 1452 by CELINE CLEVELAND SS Amended: Links added.
[2025-06-13 15:46] LABS: HEPATITIS B CORE AB TOTAL Reactive (Nonreactive)
--- NOTE | 2025-06-13 17:02 | NUR ---
SBP >[address] BEAULIEU REGARDING SBP GREATER THAN 170. UNABLE TO GET IN CONTACT WITH THE
--- NOTE | 2025-06-13 18:45 | NUR ---
PRN HYDRALAZINE RETURN THE PATIENTS AT BEDSIDE BROUGHT HOME METOPROLOL AND A 1 TIME DOSE WAS GIVEN. THE PATIENTS HYDRALAZINE WAS RETURNED, WILL REASSESS BLOOD PRESSURE AND WILL DECIDE IF FURTHER INTERVENTIONS ARE NECESSARY
--- NOTE | 2025-06-13 20:07 | HP ---
HISTORY AND PHYSICAL NOTE DATE OF CONSULTATION: 06/13/25 REASON FOR CONSULTATION: Shortness of breadth HISTORY OF PRESENT ILLNESS: This is a 70-year-old male with multiple medical problems presented to the emergency room with complaints of shortness of breath. Patient and spouse travel to [facility] and he had his last hemodialysis on Tuesday in [facility]. Patient's reported that they did not remove enough fluid and he usually has a about 3-1/2 L removed. They had a very long flight from the [facility] to [facility] whole day and then to [place] eventually locally. Patient has been on methimazole for thyrotoxicosis. He has a known history of end-stage renal disease on hemodialysis-[facility] schedule. 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, resistant hypertension, hypercholesterolemia, hyperthyroidism with the episode of thyrotoxicosis, atrial fibrillation-December 2024, severe agitation myoclonic jerking during December 2024 admission Allergies: Coded Allergies: Tetanus Vaccines and Toxoid (Unverified Allergy, Mild, ITCHING, 12/24/24) Home Meds Reported Medications Methimazole (Methimazole) 10 Mg Tablet, 30 MG PO DAILY, TAB 06/13/25 Metoprolol Succinate (Metoprolol Succinate) 100 Mg Tab.er.24h, 1 TAB PO DAILY for 30 Days, #30 TAB 0 Refills 06/13/25 Apixaban (Eliquis) 2.5 Mg Tablet, 1 TAB PO BID for 30 Days, #60 TAB 0 Refills 06/13/25 Levetiracetam (Keppra) 500 Mg Tablet, 1 TAB PO BID for 30 Days, #60 TAB 0 Refills 06/13/25 Atorvastatin Calcium (LIPITOR) 10 Mg Tab, 10 MG PO HS, TAB 05/08/24 Discontinued Reported Medications Sevelamer Carbonate (Renvela) 0.8 Gram Powd.pack, 2.4 GM PO TIDAC 12/24/24 Gabapentin (Gabapentin) 100 Mg Capsule, 100 MG PO DAILY, CAP 12/24/24 Labetalol HCl (Labetalol HCl) 200 Mg Tablet, 1 TAB PO BID for 30 Days, #60 TAB 0 Refills 12/24/24 Tamsulosin HCl (Flomax) 0.4 Mg Cap.er.24h, 0.4 MG PO DAILY, CAPSULE.DR 05/08/24 Isosorbide Mononitrate (Isosorbide Mononitrate) 20 Mg Tablet, 60 MG PO BID, TAB 05/08/24 Furosemide (Furosemide) 40 Mg Tablet, 40 MG PO BID, TAB 05/08/24 Famotidine (Famotidine) 20 Mg Tablet, 20 MG PO ACBKFST, TAB 05/08/24 Past Medical History Past Medical History: A-Fib, CAD, CHF, High Cholesterol, Hyperthyroid, Renal Disese Additional Past Medical Hx: HD, CHRONIC BACK PAIN Surgical History: Cholecystectomy Surgical History Other: PERCATH, BILATE KNEE, BACK, RENAL TRANSPLANT Family History: Negative RN Note Reviewed/Agreed w/PFSH: Yes Review of System Dictation Constitutional: Negative for fever,chills, and weight loss Eyes: Negative for injury, pain,redness, and discharge ENT: Negative for injury,pain or swelling Cardiovascular: Negative for chest pain, palpitations, and edema Respiratory: Positive for shortness of breath, cough, and wheezing, Abdomen/GI: Negative for abdominal pain, nausea, vomiting, diarrhea, and constipation Back: Negative for injury and pain : Negative for injury, bleeding and discharge MS/Extremity: Negative for injury and deformity Skin: Negative for rash, and discoloration Neuro: Negative for headache, weakness, numbness, tingling, and seizure Psych: Negative for suicide ideation, homicidal ideation, and hallucinations ALLERGIES: Coded Allergies: Tetanus Vaccines and Toxoid (Unverified Allergy, Mild, ITCHING, 12/24/24) HOME MEDS: Reported Medications Methimazole (Methimazole) 10 Mg Tablet, 30 MG PO DAILY, TAB 06/13/25 Metoprolol Succinate (Metoprolol Succinate) 100 Mg Tab.er.24h, 1 TAB PO DAILY for 30 Days, #30 TAB 0 Refills 06/13/25 Apixaban (Eliquis) 2.5 Mg Tablet, 1 TAB PO BID for 30 Days, #60 TAB 0 Refills 06/13/25 Levetiracetam (Keppra) 500 Mg Tablet, 1 TAB PO BID for 30 Days, #60 TAB 0 Refills 06/13/25 Atorvastatin Calcium (LIPITOR) 10 Mg Tab, 10 MG PO HS, TAB 05/08/24 Discontinued Reported Medications Sevelamer Carbonate (Renvela) 0.8 Gram Powd.pack, 2.4 GM PO TIDAC 12/24/24 Gabapentin (Gabapentin) 100 Mg Capsule, 100 MG PO DAILY, CAP 12/24/24 Labetalol HCl (Labetalol HCl) 200 Mg Tablet, 1 TAB PO BID for 30 Days, #60 TAB 0 Refills 12/24/24 Tamsulosin HCl (Flomax) 0.4 Mg Cap.er.24h, 0.4 MG PO DAILY, CAPSULE.DR 05/08/24 Isosorbide Mononitrate (Isosorbide Mononitrate) 20 Mg Tablet, 60 MG PO BID, TAB 05/08/24 Furosemide (Furosemide) 40 Mg Tablet, 40 MG PO BID, TAB 05/08/24 Famotidine (Famotidine) 20 Mg Tablet, 20 MG PO ACBKFST, TAB 05/08/24 INPATIENT MEDS: Current Medications Medications Dose Ordered Sig/Arturo Start Time Stop Time Status Last Admin Furosemide 40 mg Q12H 06/13/25 02:30 07/13/25 02:29 06/13/25 14:23 Sodium Chloride 250 ml @ 0 mls/hr AD 06/13/25 06:00 07/13/25 05:59 Sodium Chloride 1,000 ml @ 0 mls/hr ONCE 06/13/25 06:00 07/13/25 05:59 06/13/25 08:58 Heparin Sodium (Porcine) 10,000 unit AD 06/13/25 06:00 07/13/25 05:59 06/13/25 08:57 Alprazolam 0.25 mg TID PRN 06/13/25 07:00 07/13/25 06:59 06/13/25 07:24 Apixaban 2.5 mg BID 06/13/25 21:00 07/13/25 20:59 Atorvastatin Calcium 10 mg HS 06/13/25 21:00 07/13/25 20:59 Levetiracetam 500 mg BID 06/13/25 21:00 07/13/25 20:59 Methimazole 30 mg DAILY 06/14/25 09:00 07/14/25 08:59 Metoprolol Succinate 100 mg DAILY 06/14/25 09:00 07/14/25 08:59 Hydralazine HCl 25 mg Q4H4 PRN 06/13/25 18:00 07/13/25 17:59 VITAL SIGNS Vital Signs Date Time Temp Pulse Resp B/P (MAP) Pulse Ox O2 Delivery O2 Flow Rate FiO2 06/13/25 19:42 98.1 79 18 149/86 93 Room Air 06/13/25 17:11 95 Room Air* 0 21 06/13/25 16:00 98.4 79 18 181/78 94 Room Air 06/13/25 12:00 99.5 83 18 157/79 96 Nasal Cannula 3.0 06/13/25 09:35 97.5 82 20 168/96 99 Nasal Cannula 3.0 06/13/25 09:15 97.5 78 16 168/93 97 Nasal Cannula 3.0 06/13/25 09:00 79 14 189/108 97 Nasal Cannula 3.0 06/13/25 08:53 73 186/116 06/13/25 08:45 76 14 186/116 99 Nasal Cannula 3.0 06/13/25 08:30 75 16 190/108 98 Nasal Cannula 3.0 06/13/25 08:15 71 14 182/99 98 Nasal Cannula 3.0 06/13/25 08:03 97.5 80 20 179/102 96 Nasal Cannula 3.0 06/13/25 08:00 70 14 175/99 98 Nasal Cannula 3.0 06/13/25 07:45 68 16 160/86 98 Nasal Cannula 3.0 06/13/25 07:30 71 16 189/101 97 Nasal Cannula 3.0 06/13/25 07:25 97 06/13/25 07:15 80 18 179/102 96 Nasal Cannula 3.0 06/13/25 07:00 69 18 193/109 97 Nasal Cannula 3.0 06/13/25 06:52 72 18 178/93 97 Nasal Cannula 3.0 06/13/25 06:45 69 18 189/115 97 Nasal Cannula 3.0 06/13/25 06:44 195/112 06/13/25 06:35 67 18 195/112 97 Nasal Cannula 3.0 06/13/25 06:20 65 18 183/93 97 Nasal Cannula 3.0 06/13/25 06:05 66 20 189/107 95 Nasal Cannula 3.0 06/13/25 05:50 69 20 175/107 96 Nasal Cannula 3.0 06/13/25 05:35 97.5 66 22 176/103 97 Nasal Cannula 3.0 06/13/25 05:00 97.5 69 20 175/102 97 Nasal Cannula 3.0 06/13/25 03:25 98.1 69 22 181/108 91 Nasal Cannula 3.0 28 06/13/25 02:59 63 16 165/73 99 Nasal Cannula* 3 32 06/13/25 02:22 97.5 65 16 171/86 99 Nasal Cannula* 3 32 06/13/25 01:12 66 18 183/79 100 Nasal Cannula* 2 28 06/13/25 00:37 97.3 70 26 223/115 95 Room Air* 0 21 06/13/25 00:30 95 Nasal Cannula* 3 32 06/13/25 00:18 97.2 74 20 163/73 94 Room Air PHYSICAL EXAM Initial Vital Sign VS Vital Signs Date Time Temp Pulse Resp B/P (MAP) Pulse Ox O2 Delivery O2 Flow Rate FiO2 06/13/25 00:18 97.2 74 20 163/73 94 Room Air 06/13/25 00:37 0 21 Physical Exam Dictation General: awake, alert, NAD morbidly obese male, very coarse features of thyroid disease, mild tachypnea Head/Face: Normocephalic, atraumatic Eyes: PERRL, EOMI, vision at baseline ENT: oral cavity clear, TMs clear, no signs of infection glossomegaly Neck: Trachea midline, supple, no nuchal rigidity Cardiovascular: RRR, normal S1/S2, No MRGs, no JVD Respiratory: Decreased breath sounds and bibasilar crackles Abdomen: Soft, non-tender, non-distended, normal bowel sounds, no guarding or rebound. Skin: Warm, dry, normal turgor, no rash MS/Extremity: Pulses equal, no cyanosis, neurovascular intact, FROM Neuro: COAx4, GCS 15, strength 5/5, CN 2-12 intact, normal cerebellar exam, normal gait, Psych: Normal behavior, mood, and affect normal Extremities-1+ pitting edema without any palpable cords, Homans sign is negative LABORATORY RESULTS Laboratory Tests 06/13/25 00:35: White Blood Count 10.8, Red Blood Count 3.21, Hemoglobin 10.7, Hematocrit 32.2, Mean Corpuscular Volume 100.3, Mean Corpuscular Hemoglobin 33.3, Mean Corpuscular Hemoglobin Concent 33.2, Red Cell Distribution Width 15.2, Platelet Count 362, Mean Platelet Volume 9.3, Immature Granulocyte % (Auto) 0.6, Neutrophils (%) (Auto) 68.9, Lymphocytes (%) (Auto) 19.8, Monocytes (%) (Auto) 8.1, Eosinophils (%) (Auto) 2.0, Basophils (%) (Auto) 0.6, Neutrophils # (Auto) 7.4, Lymphocytes # (Auto) 2.1, Monocytes # (Auto) 0.9, Eosinophils # (Auto) 0.22, Basophils # (Auto) 0.06, Absolute Immature Granulocyte (auto 0.07, Nucleated Red Blood Cells 0.0, Sodium Level 141, Potassium Level 5.6, Chloride Level 102, Carbon Dioxide Level 20, Blood Urea Nitrogen 101, Creatinine 16.2, Glomerular Filtration Rate Calc 3, Random Glucose 90, Lactic Acid Level 1.3, Total Calcium 8.7, Total Creatine Kinase 245, Troponin I High Sensitivity 135.6, B-Type Natriuretic Peptide 3000, Thyroid Stimulating Hormone (TSH) 16.79, Hepatitis B Surface Antigen. Non-Reactive, Hepatitis B Surface Antibody. Positive, Hepatitis B Core Total Antibody. Reactive 06/13/25 00:45: Influenza Type A Antigen Negative For Type A, Influenza Type B Antigen Negative For Type B, SARS-CoV-2, RNA, NAAT NEGATIVE SARS CoV-2, Group A Streptococcus Rapid negative 06/13/25 03:19: Urine Color COLORLESS, Urine Appearance CLEAR, Urine pH 7.5, Urine Specific [place] 1.010, Urine Protein 70, Urine Glucose (UA) TRACE, Urine Ketones NEGATIVE, Urine Occult Blood SMALL, Urine Nitrate NEGATIVE, Urine Bilirubin NEGATIVE, Urine Urobilinogen 0.2, Urine Leukocyte Esterase NEGATIVE, Urine RBC 0-1, Urine WBC 2-5, Urine Squamous Epithelial Cells RARE, Urine Bacteria None 06/13/25 07:37: Hemoglobin 11.6, Hematocrit 34.3, Blood Urea Nitrogen 20, Creatinine 3.2, Glomerular Filtration Rate Calc 20, Hemoglobin A1c 5.4, Estimated Average Glucose (eAG) 108, Iron Level 51, Total Iron Binding Capacity 203, Percent Iron Saturation 25.1, Ferritin 1530, Albumin 3.8, Triglycerides Level 87, Cholesterol Level 167, LDL Cholesterol 92, HDL Cholesterol 49, Hepatitis C Antibody Non-Reactive, HIV (1&2) Antibody Non-Reactive, HIV P24 Antigen, Qualitative Non- Reactive PROBLEM LIST: (1) End-stage renal disease on hemodialysis ICD Codes: N18.6 - End stage renal disease; Z99.2 - Dependence on renal di alysis (2) Acute pulmonary edema ICD Codes: J81.0 - Acute pulmonary edema; Z99.2 - Dependence on renal dialysis (3) Anemia ICD Codes: D64.9 - Anemia, unspecified PLAN Consult Nephrology as patient has not been dialyzed and is fluid overloaded and has considerable dyspnea resume home medications including hypertension KIAH LEVIN MD Jun 13, 2025 20:07
[2025-06-14] VITALS (19 sets, daily range): BP systolic 141–182; BP diastolic 76–98; PULSE 60–73; RESP 16–20; TEMP 97.6–98.5
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
[2025-06-14 05:21] LABS: IMMATURE GRANULOCYTE ABSOLUTE 0.05 K/uL (0-1); NUCLEATED RED BLOOD CELLS 0.0 % (0.0-0.19); PLATELET COUNT (AUTO) 297 K/uL (130-400); RED BLOOD CELL COUNT(AUTO) 3.14 MIL/uL (4.50-6.20); RED CELL DISTRIBUTION WIDTH 15.0 % (11.0-15.5); WHITE BLOOD COUNT (AUTO) 10.1 K/uL (4.8-10.8)
[2025-06-14 05:56] LABS: ASPARTATE AMINOTRANSFERASE 24.0 U/L (10-37); GLOMERULAR FILTR. RATE CALC 4.0 mL/min (>90); GLUCOSE,RANDOM 110.0 mg/dL (70-105); PHOSPHORUS 6.4 mg/dL (2.5-4.9); SODIUM SERUM 139.0 mmol/L (136-145); TOTAL PROTEIN, SERUM 6.1 g/dL (6.0-8.3)
[2025-06-14 06:34] LABS: CREATININE 13.6 mg/dL (0.5-1.3); UREA NITROGEN, BLOOD 80.0 mg/dL (7-18)
[2025-06-14 19:02] LABS: ASPARTATE AMINOTRANSFERASE 23.0 U/L (10-37); GLOMERULAR FILTR. RATE CALC 5.0 mL/min (>90); GLUCOSE,RANDOM 152.0 mg/dL (70-105); PHOSPHORUS 4.8 mg/dL (2.5-4.9); SODIUM SERUM 139.0 mmol/L (136-145); TOTAL PROTEIN, SERUM 6.5 g/dL (6.0-8.3); UREA NITROGEN, BLOOD 60.0 mg/dL (7-18)
[2025-06-14 19:35] LABS: CREATININE 10.5 mg/dL (0.5-1.3)
--- NOTE | 2025-06-14 19:43 | PN ---
PROGRESS NOTE PROGRESS NOTE DATE OF PROGRESS NOTE: 06/14/25 SUBJECTIVE: Patient presents with shortness of breath dialysis pending VITAL SIGNS Vital Signs Date Time Temp Pulse Resp B/P (MAP) Pulse Ox O2 Delivery O2 Flow Rate FiO2 06/14/25 16:55 97.5 67 18 153/83 Room Air 06/14/25 16:00 97 06/14/25 08:08 0 21 PHYSICAL EXAM: Initial Vital Sign VS Vital Signs Date Time Temp Pulse Resp B/P (MAP) Pulse Ox O2 Delivery O2 Flow Rate FiO2 06/13/25 00:18 97.2 74 20 163/73 94 Room Air 06/13/25 00:37 0 21 Physical Exam Dictation General: awake, alert, NAD morbidly obese male, very coarse features of thyroid disease, mild tachypnea Head/Face: Normocephalic, atraumatic Eyes: PERRL, EOMI, vision at baseline ENT: oral cavity clear, TMs clear, no signs of infection glossomegaly Neck: Trachea midline, supple, no nuchal rigidity Cardiovascular: RRR, normal S1/S2, No MRGs, no JVD Respiratory: Decreased breath sounds and bibasilar crackles Abdomen: Soft, non-tender, non-distended, normal bowel sounds, no guarding or rebound. Skin: Warm, dry, normal turgor, no rash MS/Extremity: Pulses equal, no cyanosis, neurovascular intact, FROM Neuro: COAx4, GCS 15, strength 5/5, CN 2-12 intact, normal cerebellar exam, normal gait, Psych: Normal behavior, mood, and affect normal Extremities-1+ pitting edema without any palpable cords, Homans sign is negative LABORATORY: Laboratory Result(s) Test 06/14/25 05:07 06/14/25 17:35 White Blood Count 10.1 K/uL (4.8-10.8) Red Blood Count 3.14 MIL/uL (4.50-6.20) Hemoglobin 10.4 g/dL (14.0-18.0) Hematocrit 30.8 % (42-54) Mean Corpuscular Volume 98.1 fL (79-99) Mean Corpuscular Hemoglobin 33.1 pg (27.0-33.0) Mean Corpuscular Hemoglobin Concent 33.8 g/dL (32.0-36.0) Red Cell Distribution Width 15.0 % (11.0-15.5) Platelet Count 297 K/uL (130-400) Mean Platelet Volume 9.5 fL (7.5-10.5) Immature Granulocyte % (Auto) 0.5 % (0-1) Neutrophils (%) (Auto) 72.0 % (40.0-77.0) Lymphocytes (%) (Auto) 15.6 % (21.0-51.0) Monocytes (%) (Auto) 8.6 % (3.0-13.0) Eosinophils (%) (Auto) 2.7 % (0.0-8.0) Basophils (%) (Auto) 0.6 % (0.0-5.0) Neutrophils # (Auto) 7.2 K/uL (1.8-7.7) Lymphocytes # (Auto) 1.6 K/uL (1.0-4.8) Monocytes # (Auto) 0.9 K/uL (0.1-1.0) Eosinophils # (Auto) 0.27 K/uL (0.00-0.70) Basophils # (Auto) 0.06 K/uL (0.00-0.20) Absolute Immature Granulocyte (auto 0.05 K/uL (0-1) Nucleated Red Blood Cells 0.0 % (0.0-0.19) Sodium Level 139 mmol/L (136-145) 139 mmol/L (136-145) Potassium Level 5.0 mmol/L (3.5-5.1) 4.1 mmol/L (3.5-5.1) Chloride Level 98 mmol/L (101-111) 97 mmol/L (101-111) Carbon Dioxide Level 23 mmol/L (21-32) 26 mmol/L (21-32) Blood Urea Nitrogen 80 mg/dL (7-18) 60 mg/dL (7-18) Creatinine 13.6 mg/dL (0.5-1.3) 10.5 mg/dL (0.5-1.3) Glomerular Filtration Rate Calc 4 mL/min (>90) 5 mL/min (>90) Random Glucose 110 mg/dL (70-105) 152 mg/dL (70-105) Total Calcium 8.7 mg/dL (8.5-10.1) 8.6 mg/dL (8.5-10.1) Phosphorus Level 6.4 mg/dL (2.5-4.9) 4.8 mg/dL (2.5-4.9) Total Bilirubin 0.7 mg/dL (0.2-1.0) 0.7 mg/dL (0.2-1.0) Aspartate Amino Transf (AST/SGOT) 24 U/L (10-37) 23 U/L (10-37) Alanine Aminotransferase (ALT/SGPT) 26 U/L (12-78) 25 U/L (12-78) Alkaline Phosphatase 91 U/L (50-136) 112 U/L (50-136) Total Protein 6.1 g/dL (6.0-8.3) 6.5 g/dL (6.0-8.3) Albumin 2.8 g/dL (3.5-5.0) 2.9 g/dL (3.5-5.0) Magnesium Level 2.00 mg/dL (1.80-2.40) INPATIENT MEDS: Current Medications Medications Dose Ordered Sig/Arturo Start Time Stop Time Status Last Admin Furosemide 40 mg Q12H 06/13/25 02:30 07/13/25 02:29 06/14/25 14:27 Sodium Chloride 250 ml @ 0 mls/hr AD 06/13/25 06:00 07/13/25 05:59 Sodium Chloride 1,000 ml @ 0 mls/hr ONCE 06/13/25 06:00 07/13/25 05:59 06/14/25 16:12 Alprazolam 0.25 mg TID PRN 06/13/25 07:00 07/13/25 06:59 06/14/25 12:46 Apixaban 2.5 mg BID 06/13/25 21:00 07/13/25 20:59 06/14/25 09:05 Atorvastatin Calcium 10 mg HS 06/13/25 21:00 07/13/25 20:59 06/13/25 20:42 Levetiracetam 500 mg BID 06/13/25 21:00 07/13/25 20:59 06/14/25 09:04 Methimazole 30 mg DAILY 06/14/25 09:00 07/14/25 08:59 06/14/25 09:05 Metoprolol Succinate 100 mg DAILY 06/14/25 09:00 07/14/25 08:59 06/14/25 09:05 Hydralazine HCl 25 mg Q4H4 PRN 06/13/25 18:00 07/13/25 17:59 06/14/25 12:46 Heparin Sodium (Porcine) 10,000 unit AD 06/14/25 10:00 07/13/25 05:59 06/14/25 16:14 PROBLEM LIST: (1) End-stage renal disease on hemodialysis ICD Code: N18.6 - End stage renal disease; Z99.2 - Dependence on renal dialysis (2) Acute pulmonary edema ICD Code: J81.0 - Acute pulmonary edema; Z99.2 - Dependence on renal dialysis (3) Anemia ICD Code: D64.9 - Anemia, unspecified PLAN: Patient improved with dialysis continue the same if better to discharge today hypertension stable KIAH LEVIN MD Jun 14, 2025 19:43
--- NOTE | 2025-06-14 20:12 | PN ---
NEPHROLOGY PROGRESS NOTE Date of Service: Jun 14, 2025 Time of Service: 0645 SUBJECTIVE: [ Patient was evaluated at bedside. No acute events overnight reported by nursing. Patient tolerated UF of 3.5L yesterday and is set for his dialysis routine treatment today. ] REVIEW OF SYSTEMS CONSTITUTIONAL: Denies fever, chills, or fatigue. HEAD/FACE: No signs of trauma. EENT: Denies eye pain, blurred vision, double vision, or light sensitivity. RESPIRATORY: Denies shortness of breath, cough, wheezing CARDIOVASCULAR: Denies chest pain, palpitation, syncope GASTROINTESTINAL/ABDOMINAL: Denies abdominal pain, constipation, diarrhea, nausea or vomiting GENITOURINARY: Denies dysuria or hematuria. MUSCULOSKELETAL: Denies joint pain, tenderness, or trauma. INTEGUMENTARY: Denies rash or itchiness NEUROLOGICAL/PSYCH: Denies anxiety, depression, heat or cold intolerance. PHYSICAL EXAM EYES: Anicteric. Pupils equal and reactive. HENT: No oral thrush seen, moist Oral mucosa NECK: Supple, no JVD LUNGS: coarse bilaterally CARDIOVASCULAR: S1, S2 regular. No murmur heard. ABDOMEN: Soft, non tender, bowel sounds present, no organomegaly CENTRAL NERVOUS SYSTEM: Awake, alert, oriented x 3. No focal deficits. EXTREMITIES: trace edema Vital Signs (last 8hr) Date Time Temp Pulse Resp B/P (MAP) Pulse Ox O2 Delivery O2 Flow Rate FiO2 06/14/25 16:55 97.5 67 18 153/83 Room Air 06/14/25 16:25 97.5 63 16 158/87 Room Air 06/14/25 16:10 60 16 149/85 Room Air 06/14/25 16:00 97.5 66 20 146/87 97 Room Air 06/14/25 15:55 62 16 150/77 Room Air 06/14/25 15:40 65 16 154/89 Room Air 06/14/25 15:25 61 16 153/83 Room Air 06/14/25 15:10 66 16 146/81 Room Air 06/14/25 14:55 69 16 163/95 Room Air 06/14/25 14:40 69 16 165/86 Room Air 06/14/25 14:25 73 16 152/87 Room Air 06/14/25 14:10 68 16 141/76 Room Air 06/14/25 13:55 71 16 159/95 Room Air 06/14/25 13:40 71 18 156/90 Room Air 06/14/25 13:25 98.2 72 18 151/88 Room Air 06/14/25 13:00 98.2 73 20 146/80 Room Air 06/14/25 12:46 68 182/98 LABS: Laboratory: Test 06/14/25 17:35 06/14/25 05:07 06/13/25 07:37 06/13/25 03:19 Range/Units Sodium Level 139 136-145 mmol/L Potassium Level 4.1 3.5-5.1 mmol/L Chloride Level 97 L 101-111 mmol/L Carbon Dioxide Level 26 21-32 mmol/L Blood Urea Nitrogen 60 #H 7-18 mg/dL Creatinine 10.5 *H 0.5-1.3 mg/dL Glomerular Filtration Rate Calc 5 >90 mL/min Random Glucose 152 H 70-105 mg/dL Total Calcium 8.6 8.5-10.1 mg/dL Phosphorus Level 4.8 2.5-4.9 mg/dL Magnesium Level 2.00 1.80-2.40 mg/dL Total Bilirubin 0.7 0.2-1.0 mg/dL Aspartate Amino Transf (AST/SGOT) 23 10-37 U/L Alanine Aminotransferase (ALT/SGPT) 25 12-78 U/L Alkaline Phosphatase 112 50-136 U/L Total Protein 6.5 6.0-8.3 g/dL Albumin 2.9 L 3.5-5.0 g/dL White Blood Count 10.1 4.8-10.8 K/uL Red Blood Count 3.14 L 4.50-6.20 MIL/uL Hemoglobin 10.4 L 14.0-18.0 g/dL Hematocrit 30.8 L 42-54 % Mean Corpuscular Volume 98.1 79-99 fL Mean Corpuscular Hemoglobin 33.1 H 27.0-33.0 pg Mean Corpuscular Hemoglobin Concent 33.8 32.0-36.0 g/dL Red Cell Distribution Width 15.0 11.0-15.5 % Platelet Count 297 130-400 K/uL Mean Platelet Volume 9.5 7.5-10.5 fL Immature Granulocyte % (Auto) 0.5 0-1 % Neutrophils (%) (Auto) 72.0 40.0-77.0 % Lymphocytes (%) (Auto) 15.6 L 21.0-51.0 % Monocytes (%) (Auto) 8.6 3.0-13.0 % Eosinophils (%) (Auto) 2.7 0.0-8.0 % Basophils (%) (Auto) 0.6 0.0-5.0 % Neutrophils # (Auto) 7.2 1.8-7.7 K/uL Lymphocytes # (Auto) 1.6 1.0-4.8 K/uL Monocytes # (Auto) 0.9 0.1-1.0 K/uL Eosinophils # (Auto) 0.27 0.00-0.70 K/uL Basophils # (Auto) 0.06 0.00-0.20 K/uL Absolute Immature Granulocyte (auto 0.05 0-1 K/uL Nucleated Red Blood Cells 0.0 0.0-0.19 % Hemoglobin A1c 5.4 4.0-6.0 % Estimated Average Glucose (eAG) 108 70-126 mg/dL Iron Level 51 #L 65-175 mcg/dL Total Iron Binding Capacity 203 L 250-450 mcg/dL Percent Iron Saturation 25.1 L 30-44 % Ferritin 1530 H 30-400 ng/mL Triglycerides Level 87 30-200 mg/dL Cholesterol Level 167 # <200 mg/dL LDL Cholesterol 92 0-99 mg/dL HDL Cholesterol 49 29-71 mg/dL Hepatitis C Antibody Non-Reactive Nonreactive HIV (1&2) Antibody Non-Reactive Negative HIV P24 Antigen, Qualitative Non-Reactive Negative Urine Color COLORLESS YELLOW Urine Appearance CLEAR CLEAR Urine pH 7.5 5.0-8.0 Urine Specific Sinclair 1.010 1.001-1.031 Urine Protein 70 H NEGATIVE mg/dL Urine Glucose (UA) TRACE H NEGATIVE mg/dL Urine Ketones NEGATIVE NEGATIVE mg/dL Urine Occult Blood SMALL H NEGATIVE Urine Nitrate NEGATIVE NEGATIVE Urine Bilirubin NEGATIVE NEGATIVE mg/dL Urine Urobilinogen 0.2 0.2-1.0 mg/dL Urine Leukocyte Esterase NEGATIVE NEGATIVE Real/uL Urine RBC 0-1 0-1 /HPF Urine WBC 2-5 H 0-1 /HPF Urine Squamous Epithelial Cells RARE 0-2 /HPF Urine Bacteria None None Seen /HPF Test 06/13/25 00:45 06/13/25 00:35 Range/Units Influenza Type A Antigen Negative For Type A NEGATIVE Influenza Type B Antigen Negative For Type B NEGATIVE SARS-CoV-2, RNA, NAAT NEGATIVE SARS CoV-2 NEGATIVE Group A Streptococcus Rapid negative NEGATIVE Lactic Acid Level 1.3 0.8-2.5 mmol/L Total Creatine Kinase 245 #H 21-232 U/L Troponin I High Sensitivity 135.6 *H 4-75 ng/L B-Type Natriuretic Peptide 3000 H 0-100 pg/mL Thyroid Stimulating Hormone (TSH) 16.79 #H 0.36-3.74 uIU/mL Hepatitis B Surface Antigen. Non-Reactive Nonreactive Hepatitis B Surface Antibody. Positive Reactive Hepatitis B Core Total Antibody. Reactive H Nonreactive DIAGNOSTICS / RADIOLOGY: [ ] ASSESSMENT: * End-stage renal disease, on hemodialysis. * Hyperkalemia. * Acute fluid overload. * Presumed acidosis. * Abnormal cardiac enzymes. * Anemia of chronic kidney disease. * Hypertension. * Coronary artery disease. * Hyperlipidemia. * Abnormal thyroid studies. PLAN: * End-stage renal disease on HD MWF: proceed with routine treatment; UF 3-4L as tolerated; 300 blood flow ate, 600 dialysate flow rate, 2K bath 2.5 calcium bath, renal diet, 1 L fluid restriction. * Hyperkalemia- UF today; trend labs; Renal diet. * Acute fluid overload. UF today with routine session Plan for ultrafiltration 3-4 L today; 1L FR * Troponinemia- Cardio consulted; on tele. * Anemia of chronic kidney disease-stable * Hypertension. Resume home medications. UF with dialysis for better blood pressure management. This visit was rendered and documented by Jacklyn Riley, MSN, WASHER ENGINEER, REGISTERED NURSE MATERNITY-C and completed in collaboration with my supervising physician Cat Barnes MD. JACKLYN RILEY Jun 14, 2025 20:12
--- NOTE | 2025-06-14 20:50 | NUR ---
DISCHARGE INSTRUCTIONS REVIEWED DISCHARGE INSTRUCTIONS WITH PATIENT AND SPOUSE, VERBALIZES UNDERSTANDING. NO DISTRESS NOTED. PIV REMOVED, CATHETER INTACT, NO REDNESS TO SITE, APPLIED PRESSURE
--- NOTE | 2025-06-14 21:00 | NUR ---
NURSING NOTES Pt. discharged home in stable condition, taken downstair to the lobby via wheelchair by Ilda, charge nurse. resp. even and unlabored. denies c/o pain. discharge instruction given by Ilda.
--- NOTE | 2025-06-15 22:49 | DS ---
Discharge Summary DIAGNOSE(S): [Fluid overload state with end-stage renal disease on hemodialysis and respiratory failure] HOSPITAL COURSE SUMMARY: [Patient presented with respiratory failure not having being dialyzed improved with two consecutive dialysis being at his baseline being discharged to a followed as an outpatient] KILN REPAIRER(S): [Nephrology] PROCEDURE(S)/TREATMENT(S): [Hemodialysis] PROBLEM(S): [] FOLLOW-UP TEST(S): Follow up with PCP in 1-2 days [] DISCHARGE INSTRUCTIONS: [Follow up with PCP in 1-2 days] Home Meds Reported Medications Methimazole (Methimazole) 10 Mg Tablet, 30 MG PO DAILY, TAB 06/13/25 Metoprolol Succinate (Metoprolol Succinate) 100 Mg Tab.er.24h, 1 TAB PO DAILY for 30 Days, #30 TAB 0 Refills 06/13/25 Apixaban (Eliquis) 2.5 Mg Tablet, 1 TAB PO BID for 30 Days, #60 TAB 0 Refills 06/13/25 Levetiracetam (Keppra) 500 Mg Tablet, 1 TAB PO BID for 30 Days, #60 TAB 0 Refills 06/13/25 Atorvastatin Calcium (LIPITOR) 10 Mg Tab, 10 MG PO HS, TAB 05/08/24 Discontinued Reported Medications Sevelamer Carbonate (Renvela) 0.8 Gram Powd.pack, 2.4 GM PO TIDAC 12/24/24 Gabapentin (Gabapentin) 100 Mg Capsule, 100 MG PO DAILY, CAP 12/24/24 Labetalol HCl (Labetalol HCl) 200 Mg Tablet, 1 TAB PO BID for 30 Days, #60 TAB 0 Refills 12/24/24 Tamsulosin HCl (Flomax) 0.4 Mg Cap.er.24h, 0.4 MG PO DAILY, CAPSULE.DR 05/08/24 Isosorbide Mononitrate (Isosorbide Mononitrate) 20 Mg Tablet, 60 MG PO BID, TAB 05/08/24 Furosemide (Furosemide) 40 Mg Tablet, 40 MG PO BID, TAB 05/08/24 Famotidine (Famotidine) 20 Mg Tablet, 20 MG PO ACBKFST, TAB 05/08/24 KIAH LEVIN MD Jun 15, 2025 22:49
--- NOTE | 2025-06-18 21:51 | DS ---
Discharge Summary DIAGNOSE(S): [Fluid overload state and end-stage renal disease] HOSPITAL COURSE SUMMARY: [Patient presented with respiratory failure as having not being dialyzed did better with diuresis and is discharged] OIL PROSPECTING OBSERVER(S): [] PROCEDURE(S)/TREATMENT(S): [] PROBLEM(S): [] FOLLOW-UP TEST(S): [] DISCHARGE INSTRUCTIONS: [Follow up with PCP and Nephrology next week] Home Meds Reported Medications Methimazole (Methimazole) 10 Mg Tablet, 30 MG PO DAILY, TAB 06/13/25 Metoprolol Succinate (Metoprolol Succinate) 100 Mg Tab.er.24h, 1 TAB PO DAILY for 30 Days, #30 TAB 0 Refills 06/13/25 Apixaban (Eliquis) 2.5 Mg Tablet, 1 TAB PO BID for 30 Days, #60 TAB 0 Refills 06/13/25 Levetiracetam (Keppra) 500 Mg Tablet, 1 TAB PO BID for 30 Days, #60 TAB 0 Refills 06/13/25 Atorvastatin Calcium (LIPITOR) 10 Mg Tab, 10 MG PO HS, TAB 05/08/24 Discontinued Reported Medications Sevelamer Carbonate (Renvela) 0.8 Gram Powd.pack, 2.4 GM PO TIDAC 12/24/24 Gabapentin (Gabapentin) 100 Mg Capsule, 100 MG PO DAILY, CAP 12/24/24 Labetalol HCl (Labetalol HCl) 200 Mg Tablet, 1 TAB PO BID for 30 Days, #60 TAB 0 Refills 12/24/24 Tamsulosin HCl (Flomax) 0.4 Mg Cap.er.24h, 0.4 MG PO DAILY, CAPSULE.DR 05/08/24 Isosorbide Mononitrate (Isosorbide Mononitrate) 20 Mg Tablet, 60 MG PO BID, TAB 05/08/24 Furosemide (Furosemide) 40 Mg Tablet, 40 MG PO BID, TAB 05/08/24 Famotidine (Famotidine) 20 Mg Tablet, 20 MG PO ACBKFST, TAB 05/08/24 KIAH LEVIN MD Jun 18, 2025 21:51
== END 2025-06-14 21:00 | disposition home or self-care (01) ==
LOC: EDH 00:17 → EDHIP 02:02 → 3CH 03:33 → OBSVTOIN 10:49 → INTOOBSV 10:49
PROVIDERS: ADMIT Internal Medicine; ATTEND Internal Medicine
DX: I13.2 Hypertensive heart and chronic kidney disease with heart failure and with stage 5 chronic kidney disease, or end stage renal disease (principal); N18.6 End stage renal disease; I50.9 Heart failure, unspecified; D63.1 Anemia in chronic kidney disease; J96.90 Respiratory failure, unspecified, unspecified whether with hypoxia or hypercapnia; E87.5 Hyperkalemia; E87.20 Acidosis, unspecified; I25.10 Atherosclerotic heart disease of native coronary artery without angina pectoris; E78.00 Pure hypercholesterolemia, unspecified; K76.0 Fatty (change of) liver, not elsewhere classified; N40.0 Benign prostatic hyperplasia without lower urinary tract symptoms; I34.0 Nonrheumatic mitral (valve) insufficiency; E05.90 Thyrotoxicosis, unspecified without thyrotoxic crisis or storm; E66.01 Morbid (severe) obesity due to excess calories; G89.29 Other chronic pain; M54.9 Dorsalgia, unspecified; N28.9 Disorder of kidney and ureter, unspecified; R60.0 Localized edema; Z20.822 Contact with and (suspected) exposure to COVID-19; Z99.2 Dependence on renal dialysis; Z94.0 Kidney transplant status; Z79.899 Other long term (current) drug therapy; Z98.890 Other specified postprocedural states; Z68.36 Body mass index [BMI] 36.0-36.9, adult
CPT/HCPCS: 96374; 96376 ×2; 96372; 96375; 99285; 84520; 82565; 85014; 85018; 93005 ×2; 83036; 82040; 84443; 83540; 83550; 82550; 84484; 80061; 80048; 83880; 82728; 85025 ×2; 86803; 87880; 87804 ×2; 83605; 86706; 87340; 86704; 86701; 87390; 81001; 36415 ×2; 87635; 71045 ×2; 93970; 90935 ×2; 80053 ×2; 83735; 84100 ×2; J0360 ×2; J1644 ×2; J1938 ×4; G0378 ×6; G0257

== ENCOUNTER → 2025-06-27 | Outpatient (CLI) | payer MEDICARE ==
[~2025-06-27] MED LIST changes: +APIX2.5T PO; -FAMO20TA8 PO; -FURO40TA5 PO; -GABA-529 PO; -ISOS-58 PO; -LABE200T7 PO; +LEVE-43 PO; +METH-387 PO; +METO-409 PO; -SEVE0.8P PO; -TAMS-55 PO
--- NOTE | 2025-06-28 11:02 | HMCIMG ---
EXAMINATION: ULTRASOUND OF THE THYROID. CLINICAL HISTORY: Non toxic multinodular goiter. COMPARISON: Prior ultrasound dated 12/07/2024. TECHNIQUE: Transverse and longitudinal images were obtained through both lobes and the isthmus of the thyroid. FINDINGS: The thyroid gland is bulky in caliber with heterogenous tissue echotexture. The right thyroid lobe measures 6.2 x 1.9 x 2.0 cm and the left thyroid lobe measures 6.2 x 1.9 x 2.1 cm in the craniocaudal, AP, and transverse dimensions respectively. The isthmus measures 0.4 cm in AP dimension. Right lobe: There is a hypoechoic mixed solid cystic nodule that measures 0.8 x 0.5 x 0.8 cm at the upper pole (TR3). There is a hypoechoic mixed solid cystic nodule that measures 0.5 x 0.4 x 0.4 cm at the upper pole (TR3). There is a hypoechoic mixed solid cystic nodule that measures 1.3 x 0.6 x 1.0 cm at the mid pole (TR3). There is a hyperechoic solid nodule that measures 0.7 x 0.6 x 0.7 cm at the lower pole (TR2). Left lobe: There is a cystic nodule that measures 0.3 x 0.2 x 0.3 cm at the upper pole (TR1). There is a hypoechoic mixed solid cystic nodule that measures 1.2 x 0.6 x 1.0 cm at the mid pole (TR3). There is a hypoechoic mixed solid cystic nodule that measures 0.5 x 0.5 x 0.7 cm at the mid pole (TR3). There is an isoechoic solid nodule that measures 0.5 x 0.5 x 0.5 cm at the mid pole (TR3). There is a cystic nodule that measures 0.3 x 0.3 x 0.3 cm at the lower pole (TR1). No significantly enlarged lymph nodes. IMPRESSION: Bulky thyroid with heterogenous tissue echotexture, of concern for thyroiditis. Nodules in both lobes of the thyroid. There is interval appearance of right lobe mid pole and left lobe upper and lower pole cystic nodules, the remainder of the nodules are unchanged. TI-RADS follow up recommendations: TR1: no FNA required TR2: no FNA required TR3: more than or equal to 1.5 cm follow up, more than or equal to 2.5 cm FNA follow up: 1, 3 and 5 years TR4: more than or equal to 1.0 cm follow up, more than or equal to 1.5 cm FNA follow up: 1, 2, 3 and 5 years TR5: more than or equal to 0.5 cm follow up, more than or equal to 1.0 cm FNA annual follow up for up to 5 years /[place]
== END | disposition home or self-care (01) ==
LOC: CANPRECLI → RAH 14:47
PROVIDERS: ATTEND Internal Medicine Endocrinology, Diabetes & Metabolism
DX: E04.2 Nontoxic multinodular goiter (principal)
CPT/HCPCS: 76536